=== PATIENT | male | born 1955 | race Caucasian/White ===

== ENCOUNTER → 2016-10-22 | Outpatient (CLI) | payer OTHER ==
--- NOTE | 2016-10-22 12:11 | CT ---
EXAMINATION TYPE: CT ChestAbdPelvis w con DATE OF EXAM: 10/22/2016 11:42 AM COMPARISON: November 04, 2013 and 06/25/1716 HISTORY: Lung carcinoma follow-up. CT DLP: DLP 2569 mGycm CONTRAST: CT scan of the chest, abdomen and pelvis is performed 100cc omni 300 injected through port acsessed b y rad nursing. oral also. CT Chest: LUNGS: Status post partial pneumonectomy change right upper lobe. There is persistent soft tissue rig ht paratracheal region right upper lobe measuring approximately 7.2 x 7.7 x 2.4 cm essentially unchan ged relative to the prior examination. There is a new finding of innumerable pulmonary nodules throug hout both lung callahan with the largest nodule left upper lobe measuring 1 cm and the smallest nodule within the left lung measures 2 mm. Within the right lung the largest nodule is identified at 9.5 mm with multiple small 2 mm nodules noted as well. There is a new right-sided pleural effusion measuring 2.1 cm in greatest AP dimension. MEDIASTINUM: Thoracic aorta is of normal caliber. The heart is not enlarged. Subcarinal adenopathy measures 1.9 cm versus 1.9 cm. Left-sided prevascular space adenopathy measures 1.9 cm versus 1.7 cm previously. There is also a new pericardial effusion measuring 2.7 cm in greatest dimension greatest along the left the lateral cardiac border. HILAR STRUCTURES: No evidence for mass. No hilar adenopathy is appreciated. OTHER: No significant abnormality. CONTRAST CT ABDOMEN AND PELVIS FINDINGS: LIVER/GB: No calcified gallstones. No space occupying hepatic lesion. Biliary tree is of normal ca liber. PANCREAS: No inflammation. No distinct mass. SPLEEN: No splenic enlargement. No lesion seen. ADRENALS: Right adrenal nodule is unchanged at 2 cm. Mild thickening is seen of the left adrenal glan d. KIDNEYS/BLADDER: No hydronephrosis. No nephrolithiasis. Stable renal cystic changes identified. The urinary bladder is poorly distended. BOWEL: Stable umbilical hernia which contains a short segment of small bowel without incarceration o r strangulation at this time. Normal appendix. Normal bowel caliber. No inflammation. GENITAL ORGANS: No gross abnormality. LYMPH NODES: No greater than 1cm abdominal or pelvic lymph nodes are appreciated. AORTA: No significant abnormality. OSSEOUS STRUCTURES: Degenerative changes thoracolumbar spine. OTHER: No significant additional abnormality is seen. IMPRESSION: 1. Essentially stable right hilar/suprahilar soft tissue for which I cannot exclude a tumor recurrenc e. As noted there is a new finding of innumerable pulmonary nodules within both lung callahan felt to r eflect metastatic disease. 2. New small right-sided pleural effusion. There are 3 mediastinal adenopathy as discussed. 4. New pericardial effusion. 5. Stable right adrenal nodule. Metastatic lesion not excluded.
== END | disposition home or self-care (01) ==
LOC: RADPROMAIN 10:58
PROVIDERS: ATTEND Internal Medicine Hematology & Oncology
DX: C34.90 Malignant neoplasm of unspecified part of unspecified bronchus or lung (principal); J90 Pleural effusion, not elsewhere classified; I31.3 Pericardial effusion (noninflammatory); R59.0 Localized enlarged lymph nodes; E27.8 Other specified disorders of adrenal gland
CPT/HCPCS: 71260; 74177; Q9967

== ENCOUNTER → 2016-11-20 | Outpatient (CLI) | payer OTHER ==
--- NOTE | 2016-11-20 10:55 | XR ---
EXAMINATION TYPE: XR chest 2V DATE OF EXAM: 11/20/2016 10:51 AM COMPARISON: 05/10/2014 TECHNIQUE: PA and lateral views submitted. HISTORY: Lung cancer FINDINGS: Cardiomegaly and Mediport catheter seen. Vague nodule seen in the right midlung measuring 7 mm. There is increasing density along the right paratracheal space with evidence of previous surgery. Bilatera l pleural-based thickening noted. Small right-sided pleural effusion. IMPRESSION: 1. Increasing right paratracheal soft tissue density relative to the previous exam as well as a new n odule in the right midlung measuring 7 mm. Pulmonary nodules and increased density in the right parat alesha region have been reported by previous CT scan.
== END | disposition home or self-care (01) ==
LOC: RADXRMAIN 10:34
PROVIDERS: ATTEND Registered Nurse Oncology
DX: R91.8 Other nonspecific abnormal finding of lung field (principal); M79.89 Other specified soft tissue disorders; C34.90 Malignant neoplasm of unspecified part of unspecified bronchus or lung; M25.519 Pain in unspecified shoulder; I10 Essential (primary) hypertension; Z71.3 Dietary counseling and surveillance
CPT/HCPCS: 71020

== ENCOUNTER 2016-12-03 16:47 | Emergency (ER) | payer OTHER ==
[2016-12-03 17:01] VITALS: TEMP 98
--- NOTE | 2016-12-03 17:40 | XR ---
EXAMINATION TYPE: XR elbow complete RT DATE OF EXAM: 12/03/2016 COMPARISON: NONE HISTORY: Pain following fall TECHNIQUE: Three-view right elbow FINDINGS: Anterior fat pad is normal. No elevation of posterior fat pad is evident. Radius aligns nor moris with the humerus. No acute displaced fractures are identified. Follow-up exams can be performed 7-10 days from acute trauma for continued pain. IMPRESSION: 1. Normal three-view right elbow.
--- NOTE | 2016-12-03 17:45 | ED ---
Fall HPI - General Chief Complaint: Fall Stated Complaint: Fell/hit head Time Seen by Provider: 12/03/16 17:10 Source: patient, RN notes reviewed Mode of arrival: wheelchair - History of Present Illness Initial Comments: 61 yo male presents to the ER with cc of fall. Patient states today he was bending over to tie his grandson shoe. Patient states that he currently is stage IV lung cancer and if you have or bends over or stands up too quickly he becomes lightheaded and has a syncopal episode. He states this happens often they state that they have been worked up for this. He states that he did this today and he became lightheaded and he passed out and hit his head. Family states that they called his doctor and they informed him to come here to ensure that his brain was okay. Patient states this was much like his typical syncopal episode. Patient denies any chest pain or shortness of breath with this. He states this happens to him often but typically gets them approximately once happens. He wanted to make sure that his brain is okay that they are not here for any other purpose. He states he did not want be worked up for these episodes he has been worked up for them. They just want to make sure everything else is okay. Patient denies any recent fever, chills, shortness of breath, chest pain, back pain, abdominal pain, nausea vomiting, numbness or tingling, dysuria or hematuria, constipation or diarrhea, headaches or visual changes, or any other current symptoms. - Related Data Home Medications Medication Instructions Recorded Confirmed Docusate Sodium [Dulcolax Stool 100 mg PO DAILY PRN 02/14/14 06/26/16 Softener] Albuterol Sulfate [Proair 1 puff PO DIRECTED PRN 06/26/16 06/26/16 Respiclick] Budesonide-Formot 160-4.5 Mcg 2 puff INHALATION BID PRN 06/26/16 06/26/16 [Symbicort 160-4.5 Mcg Inhaler] Tiotropium Kennan [Spiriva 4 gm IH DIRECTED PRN 06/26/16 06/26/16 Respimat] Allergies Allergy/AdvReac Type Severity Reaction Status Date / Time No Known Allergies Allergy Verified 12/03/16 19:05 Review of Systems ROS Statement: Those systems with pertinent positive or pertinent negative responses have been documented in the HPI. ROS Other: All systems not noted in ROS Statement are negative. Past Medical History Past Medical History: Cancer, Hypertension Additional Past Medical History / Comment(s): constipation,arthritis,. DX LUNG CA November. 33 RADIATION TX'S AND 4TH ROUND CHEMO GIVEN APR 27, 2014 AND COMPLETED., HAS TORN ROTATORS CUFF, MIGRAINES History of Any Multi-Drug Resistant Organisms: None Reported Past Surgical History: Appendectomy, Bowel Resection Additional Past Surgical History / Comment(s): REMOVED UPPER LOBE OF RT LUNG FOR TUMOR 12/07/2013, PYLENADEL CYST REMOVED YRS AGO, Past Anesthesia/Blood Transfusion Reactions: No Reported Reaction Past Psychological History: No Psychological Hx Reported Smoking Status: Former smoker Past Alcohol Use History: None Reported Past Drug Use History: None Reported - Past Family History Father Family Medical History: Cancer Mother Family Medical History: Renal Disease General Exam - General Exam Comments Initial Comments: General: The patient is awake and alert, in no distress, and does not appear acutely ill. Eye: Pupils are equal, round and reactive to light, extra-ocular movements are intact; there is normal conjunctiva bilaterally. No signs of icterus. Ears, nose, mouth and throat: There are moist mucous membranes. Neck: The neck is supple, there is no tenderness. Cardiovascular: There is a regular rate and rhythm. No murmur, rub or gallop is appreciated. Respiratory: Lungs are clear to auscultation, respirations are non-labored, breath sounds are equal. No wheezes, stridor, rales, or rhonchi. Gastrointestinal: Soft, non-distended, non-tender abdomen without masses or organomegaly noted. There is no rebound or guarding present. No CVA tenderness. Bowel sounds are unremarkable. Back: There is no tenderness to palpation in the midline. There is no obvious deformity. No rashes noted. Musculoskeletal: Patient does appear to have superficial abrasion to the right elbow, Normal ROM, no tenderness, There is no pedal edema. There is no calf tenderness or swelling. Sensation intact. Pulses equal bilaterally 2+. Neurological: CN II-XII intact, There are no obvious motor or sensory deficits. Coordination appears grossly intact. Speech is normal. Skin: Skin is warm and dry and no rashes or lesions are noted. Psychiatric: Cooperative, appropriate mood & affect, normal judgment. Limitations: no limitations Course Vital Signs 12/03/16 16:58 Temperature 98.0 F Pulse Rate 108 H Respiratory 20 Rate Blood Pressure 155/75 O2 Sat by Pulse 97 Oximetry Medical Decision Making - Medical Decision Making 61-year-old male presents emergency Department chief complaint of fall with head injury. At this time CT is reviewed and it does appear that patient most likely has a medic stabbing lesion. There is low suspicion for hemorrhage at this time. This time we discussed close follow up with his doctor. I'm in the morning. We did discuss return parameters and follow-up. We discussed other causes of this and when to come back. They stated they understood and he understood the plan. All questions have been answered. They will be discharged. - Radiology Data Radiology results: report reviewed, image reviewed Disposition Clinical Impression: Syncope, Fall, Minor head injury, Brain tumor Disposition: HOME SELF-CARE Condition: Stable Instructions: Head Injury (ED) Additional Instructions: Please use medication as discussed. Please follow up with family doctor if symptoms have not improved over the next two days. Please return to the emergency room if your symptoms increase or worsen or for any other concerns. Referrals: Adama Castillo DO [Primary Care Provider] - 1-2 days Time of Disposition: 19:09
--- NOTE | 2016-12-03 17:48 | CT ---
EXAMINATION TYPE: CT brain jerry soares DATE OF EXAM: 12/03/2016 COMPARISON: NONE HISTORY: Syncopal episode with posterior head injury today CT DLP: 1730.7 mGycm, Automated exposure control for dose reduction was used. CONTRAST: Patient injected with 0 mL of Omnipaque 300. CT of the brain is performed utilizing 3 mm thick sections through the posterior fossa and 3 mm thick sections through the remaining calvarium. Study is performed within 24 hours of arrival to the hospital. There is an ill-defined 0.9 cm hyperintensity within the left subcortical centrum semiovale. Diffuse axonal injury with a small hemorrhage could be considered. Underlying mass, such as metastasis, is no t excluded. There is some vague hypodensity adjacent which could be related to some edema. Series 11 image 42. Report was called to the emergency room PA by Dr. Hull by telephone at the time of inter pretation. No additional areas suspicious for acute intracranial hemorrhage is evident. No acute infarcts are evident. Ventricles and sulci are appropriate for the patient age. Paranasal sinuses and mastoid air cells within the [id number] are clear. IMPRESSIONS: 1. There is a 0.9 cm ill-defined hyperintensity within the subcortical region posterior left frontal lobe which is felt to be likely related to a metastatic lesion, patient is a known stage IV cancer. Differential could include, but less likely, an acute diffuse axonal injury or intraparenchymal hemor rhage. CT cervical spine. COMPARISON: None CT of the cervical spine is performed in the axial plane at 2 mm thick sections. Reconstructed image s in the coronal, and sagittal plane are reviewed on the computer. No acute fractures are evident. Vertebral body alignment is normal. Disc heights are preserved. Vertebral body heights are preserved. There is an area of sclerosis within the body of the right C1 v ertebral level. No spinal canal stenosis is evident. No neural foraminal stenosis is evident. There are scattered punctate densities within the left lung apex. Metastatic disease could be conside red. There is some thickening through the right apex. This could be related to scarring or neoplasm. IMPRESSIONS: 1. No acute osseous abnormality cervical spine. 2. Punctate nodularity within the left apex with some thickening along the right medial apex. Correla te for primary and metastatic lesions. 3. Sclerosis within the right portion vertebral body of C1. Sclerotic metastasis is not excluded.
[2016-12-03] MEDS ORDERED: RX INFO: IV CONTRAST WAS GIVEN 1 EACH MISC MISCELLANE PRN (18:05)
--- NOTE | 2016-12-03 19:01 | CT ---
EXAMINATION TYPE: CT brain w con DATE OF EXAM: 12/03/2016 COMPARISON: NONE INDICATION: R/O bleed vs. Mass DLP: 978.2 mGycm, Automated exposure control for dose reduction was used. CONTRAST: None CT of the brain is performed utilizing 3 mm thick sections through the posterior fossa and 3 mm thick sections through the remaining calvarium. Study is performed within 24 hours of arrival to the hosp ital. No abnormal hyperdensity is present to suggest an acute intracranial hemorrhage. The rounded density within the subcortical white matter interface in the left parietal lobe is again identified. On these images this measures 1.1 x 1.2 x 1.3 cm. Margins appear smooth and intraparenchy mal. Mild vasogenic edema may be adjacent. No acute infarcts are evident. Ventricles and sulci are appropriate for the patient age. Paranasal sinuses and mastoid air cells within the [id number] are clear. IMPRESSIONS: 1. Findings appear more suggestive for intraparenchymal metastatic lesion within the left parietal lobe. Some enhancement appears to be present.
[2016-12-03 19:45] VITALS: BP 134/79; PULSE 113; RESP 16
== END 2016-12-03 19:43 | disposition home or self-care (01) ==
LOC: EC 16:47
DX: S09.90XA Unspecified injury of head, initial encounter (principal); R55 Syncope and collapse; R42 Dizziness and giddiness; D49.6 Neoplasm of unspecified behavior of brain; Z85.118 Personal history of other malignant neoplasm of bronchus and lung; Z87.891 Personal history of nicotine dependence; W18.00XA Striking against unspecified object with subsequent fall, initial encounter; Y92.009 Unspecified place in unspecified non-institutional (private) residence as the place of occurrence of the external cause
CPT/HCPCS: 73080; 72125; 70450; 70460; 99284; Q9967

== ENCOUNTER → 2016-12-04 | Outpatient (CLI) | payer OTHER ==
[2016-12-04 20:59] LABS: Non-African American GFR(MDRD) >60 (>60 ml/min/1.73 sqM)
--- NOTE | 2016-12-05 08:13 | MR ---
EXAMINATION TYPE: MR brain wo/w con DATE OF EXAM: 12/04/2016 COMPARISON: MRI brain February 01, 2014. CT brain December 03, 2016. HISTORY: Secondary malignant neoplasm of lung per order. History of lung cancer with recent fall inju ry and had abnormal CT. TECHNIQUE: Multiplanar, multisequence images of the brain and brainstem is performed without and with IV contras t, utilizing 20 mL intravenous MultiHance . FINDINGS: Diffusion weighted images demonstrate no evidence of a recent infarct or other diffusion ab normality. There is no worrisome extra-axial fluid collection. There is diffuse ventricular and sulc al prominence consistent with diffuse cerebral atrophy. No suspicious intraparenchymal blood product is seen in T2 Star weighted images to suggest diffuse axonal injury Midline structures demonstrate normal morphology. The craniocervical junction appears within normal limits. Post contrast images confirm 1.2 x 1.0 x 1.0 heterogeneous enhancing lesion high left fronta l parietal region on axial image 25, coronal image 22, and sagittal image 53. This correlates with hy perdense slight enhancing lesion on CT. Blood product noted on T2 Star weighted images. In addition s een better on MRI versus CT there is second additional new rim-enhancing heterogeneous smaller lesion s, for references 3 mm lesion left temporal parietal region on sagittal image 24. The dural venous si nuses appear patent. The visualized sinuses are clear and the globes are intact. IMPRESSION: Hemorrhagic metastatic 1.2 cm focus high left frontal parietal junction is confirmed. Sec ond smaller metastatic lesion is seen on MRI not as well seen on CT.
== END | disposition home or self-care (01) ==
LOC: RADMRIMAIN 20:27
PROVIDERS: ATTEND Radiology Radiation Oncology
DX: C79.31 Secondary malignant neoplasm of brain (principal); C78.00 Secondary malignant neoplasm of unspecified lung
CPT/HCPCS: 82565; 70553; 36415; A9577

== ENCOUNTER 2017-01-15 12:05 | Inpatient (IN) | payer OTHER ==
[2017-01-15] MEDS ORDERED: IPRATROPIUM-ALBUTEROL 3 ML NEB INHALATION STA (13:02)
[2017-01-15] MEDS ORDERED: SODIUM CHLORIDE 0.9% 1,000 ML IV STA (13:02)
[2017-01-15 13:23] LABS: Basophils % (A) 0 %; CH 25.9; CHCM 31.4; Eosinophils % (A) 1 %; HCT 42.2 % (39.0-53.0); HDW 2.42; HGB 13.4 gm/dL (13.0-17.5); Hypochromasia Slight; Luc # (Auto) 0.23; Luc % (Auto) 3; Lymphocytes # (A) 0.7 k/uL (1.0-4.8); Lymphocytes % (A) 9 %; MCH 26.1 pg (25.0-35.0); MCHC 31.7 g/dL (31.0-37.0); MCV 82.4 fL (80.0-100.0); Mean Platelet Volume 6.8; Monocytes # (A) 0.6 k/uL (0-1.0); Monocytes % (A) 8 %; Neutrophils # (A) 6.5 k/uL (1.3-7.7); Neutrophils % (A) 80 %; RBC 5.13 m/uL (4.30-5.90); RDW 14.8 % (11.5-15.5); WBC 8.1 k/uL (3.8-10.6)
[2017-01-15 13:32] LABS: INR 1.3 (<1.1); Prothrombin Time 13.1 sec (9.0-12.0)
[2017-01-15 13:41] LABS: Creatine Kinase 54 U/L (55-170)
--- NOTE | 2017-01-15 13:45 | ED ---
SOB HPI - General Chief Complaint: Shortness of Breath Stated Complaint: Poss Blood Clot Time Seen by Provider: 01/15/17 12:23 Source: patient, family, RN notes reviewed, old records reviewed Mode of arrival: wheelchair Limitations: no limitations - History of Present Illness Initial Comments: This is a 61-year-old male with history of stage IV lung cancer who is status post a partial lung resection on the right and currently is being treated with chemotherapy who presents with complaints of shortness of breath. He states he has shortness of breath with exertional dyspnea. No dizziness he is also a recent decreased appetite concern was for pulmonary embolism along with the presenting complaints. He denies a over chest pain at this time. MD Complaint: shortness of breath - Related Data Home Medications Medication Instructions Recorded Confirmed Docusate Sodium [Dulcolax Stool 100 mg PO TID 02/14/14 01/15/17 Softener] Tiotropium Gilbert [Spiriva 4 gm IH RT-DAILY PRN 06/26/16 01/15/17 Respimat] Fexofenadine HCl [Skye Allergy] 180 mg PO DAILY 12/03/16 01/15/17 Fluticasone/Salmeterol [Advair 1 inhalation PO RT-BID 12/03/16 01/15/17 500-50 Diskus] Levalbuterol Nebulized [Xopenex 1.25 mg INHALATION RT-QID PRN 12/03/16 01/15/17 Nebulized] Naproxen Sodium/Pseudoephedrin 1 tab PO BID 12/03/16 01/15/17 [Aleve-D Sinus and Cold Caplet] Opdivo Unknown Dose 1 dose IV Q14D 12/03/16 01/15/17 diphenhydrAMINE HCL [Benadryl] 50 mg PO HS PRN 12/03/16 01/15/17 guaiFENesin [Mucinex] 600 mg PO DAILY 12/03/16 01/15/17 Allergies Allergy/AdvReac Type Severity Reaction Status Date / Time No Known Allergies Allergy Verified 01/15/17 12:31 Review of Systems ROS Statement: Those systems with pertinent positive or pertinent negative responses have been documented in the HPI. ROS Other: All systems not noted in ROS Statement are negative. Past Medical History Past Medical History: Cancer, Hypertension Additional Past Medical History / Comment(s): constipation,arthritis,. DX LUNG CA MAY 1ST 2014. 31 RADIATION TX'S AND 4TH ROUND CHEMO GIVEN APR 27, 2014 AND COMPLETED., HAS TORN ROTATORS CUFF, MIGRAINES History of Any Multi-Drug Resistant Organisms: None Reported Past Surgical History: Appendectomy, Bowel Resection Additional Past Surgical History / Comment(s): REMOVED UPPER LOBE OF RT LUNG FOR TUMOR 12/07/2013, PYLENADEL CYST REMOVED YRS AGO, Past Anesthesia/Blood Transfusion Reactions: No Reported Reaction Past Psychological History: No Psychological Hx Reported Smoking Status: Former smoker Past Alcohol Use History: None Reported Past Drug Use History: None Reported - Past Family History Father Family Medical History: Cancer Mother Family Medical History: Renal Disease General Exam - General Exam Comments Initial Comments: This is a well-developed well-nourished awake alert oriented times 3 male Limitations: no limitations General appearance: alert, anxious, in distress Head exam: Present: atraumatic, normocephalic, normal inspection Eye exam: Present: normal appearance, PERRL, EOMI. Absent: scleral icterus, conjunctival injection, periorbital swelling ENT exam: Present: normal exam, mucous membranes moist Neck exam: Present: normal inspection. Absent: tenderness, meningismus, lymphadenopathy Respiratory exam: Present: wheezes, decreased breath sounds Cardiovascular Exam: Present: tachycardia GI/Abdominal exam: Present: soft, normal bowel sounds. Absent: distended, tenderness, guarding, rebound, rigid Extremities exam: Present: normal inspection, full ROM, normal capillary refill. Absent: tenderness, pedal edema, joint swelling, calf tenderness Back exam: Present: normal inspection Neurological exam: Present: alert, oriented X3, CN II-XII intact Psychiatric exam: Present: normal affect, normal mood Skin exam: Present: warm, dry, intact, normal color. Absent: rash Course Vital Signs 01/15/17 01/15/17 01/15/17 12:10 13:19 13:24 Temperature 98.3 F Pulse Rate 133 H 122 H 126 H Respiratory 24 Rate Blood Pressure 106/72 O2 Sat by Pulse 97 Oximetry 01/15/17 01/15/17 01/15/17 13:30 13:43 14:00 Temperature Pulse Rate 126 H 124 H Respiratory 20 24 Rate Blood Pressure 141/76 O2 Sat by Pulse 95 95 Oximetry 01/15/17 01/15/17 14:30 15:22 Temperature 98.5 F Pulse Rate 118 H 121 H Respiratory 22 22 Rate Blood Pressure 138/90 136/83 O2 Sat by Pulse 95 99 Oximetry - Reevaluation(s) Reevaluation #1: 01/15/17 15:47 Reevaluation patient reveals improvement in his ability to breathe he still does feel somewhat short of breath however. Medical Decision Making - Medical Decision Making I did discuss the findings with the patient and his . I also discussed case with the admitting physician. Patient be admitted with consultation by Dr. Gomez. Patient is feeling more comfortable after the initial treatment that was rendered. - Lab Data Result diagrams: 01/15/17 12:55 01/15/17 12:55 Lab Results 01/15/17 01/15/17 01/15/17 Range/Units 12:55 12:55 12:55 WBC 8.1 (3.8-10.6) k/uL RBC 5.13 (4.30-5.90) m/uL Hgb 13.4 (13.0-17.5) gm/dL Hct 42.2 (39.0-53.0) % MCV 82.4 (80.0-100.0) fL MCH 26.1 (25.0-35.0) pg MCHC 31.7 (31.0-37.0) g/dL RDW 14.8 (11.5-15.5) % Plt Count 419 (150-450) k/uL Neutrophils % 80 % Lymphocytes % 9 % Monocytes % 8 % Eosinophils % 1 % Basophils % 0 % Neutrophils # 6.5 (1.3-7.7) k/uL Lymphocytes # 0.7 L (1.0-4.8) k/uL Monocytes # 0.6 (0-1.0) k/uL Eosinophils # 0.0 (0-0.7) k/uL Basophils # 0.0 (0-0.2) k/uL Hypochromasia Slight PT (9.0-12.0) sec INR (<1.1) APTT (22.0-30.0) sec D-Dimer (<0.60) mg/L FEU Sodium 136 L (137-145) mmol/L Potassium 4.6 (3.5-5.1) mmol/L Chloride 102 (98-107) mmol/L Carbon Dioxide 24 (22-30) mmol/L Anion Gap 10 mmol/L BUN 20 (9-20) mg/dL Creatinine 0.98 (0.66-1.25) mg/dL Est GFR (MDRD) Af Amer >60 (>60 ml/min/1.73 sqM) Est GFR (MDRD) Non-Af >60 (>60 ml/min/1.73 sqM) Glucose 123 H (74-99) mg/dL Calcium 9.6 (8.4-10.2) mg/dL Magnesium 1.8 (1.6-2.3) mg/dL Total Bilirubin 0.7 (0.2-1.3) mg/dL AST 29 (17-59) U/L ALT 38 (21-72) U/L Alkaline Phosphatase 54 (38-126) U/L Total Creatine Kinase 54 L (55-170) U/L CK-MB (CK-2) 1.3 (0.0-2.4) ng/mL CK-MB (CK-2) Rel Index 2.4 Troponin I <0.012 (0.000-0.034) ng/mL NT-Pro-B Natriuret Pep pg/mL Total Protein 7.2 (6.3-8.2) g/dL Albumin 3.5 (3.5-5.0) g/dL 01/15/17 01/15/17 Range/Units 12:55 12:55 WBC (3.8-10.6) k/uL RBC (4.30-5.90) m/uL Hgb (13.0-17.5) gm/dL Hct (39.0-53.0) % MCV (80.0-100.0) fL MCH (25.0-35.0) pg MCHC (31.0-37.0) g/dL RDW (11.5-15.5) % Plt Count (150-450) k/uL Neutrophils % % Lymphocytes % % Monocytes % % Eosinophils % % Basophils % % Neutrophils # (1.3-7.7) k/uL Lymphocytes # (1.0-4.8) k/uL Monocytes # (0-1.0) k/uL Eosinophils # (0-0.7) k/uL Basophils # (0-0.2) k/uL Hypochromasia PT 13.1 H (9.0-12.0) sec INR 1.3 (<1.1) APTT 67.0 H (22.0-30.0) sec D-Dimer 2.59 H (<0.60) mg/L FEU Sodium (137-145) mmol/L Potassium (3.5-5.1) mmol/L Chloride (98-107) mmol/L Carbon Dioxide (22-30) mmol/L Anion Gap mmol/L BUN (9-20) mg/dL Creatinine (0.66-1.25) mg/dL Est GFR (MDRD) Af Amer (>60 ml/min/1.73 sqM) Est GFR (MDRD) Non-Af (>60 ml/min/1.73 sqM) Glucose (74-99) mg/dL Calcium (8.4-10.2) mg/dL Magnesium (1.6-2.3) mg/dL Total Bilirubin (0.2-1.3) mg/dL AST (17-59) U/L ALT (21-72) U/L Alkaline Phosphatase (38-126) U/L Total Creatine Kinase (55-170) U/L CK-MB (CK-2) (0.0-2.4) ng/mL CK-MB (CK-2) Rel Index Troponin I (0.000-0.034) ng/mL NT-Pro-B Natriuret Pep 535 pg/mL Total Protein (6.3-8.2) g/dL Albumin (3.5-5.0) g/dL - EKG Data -: EKG Interpreted by Ok EKG shows normal: sinus rhythm (EKG shows sinus tachycardia of 127 appear of 01 54 QRS 88 QT/QTC at 286/4:15 low-voltage QRS nonspecific anterior findings no acute changes seen with compared to an EKG dated 05/07/14) - Radiology Data Radiology results: report reviewed (I did review the imaging and reports are is evidence of a right pleural effusion and pericardial effusion.), image reviewed Critical Care Time Critical Care Time: Yes Critical Care Time: 31 minutes of critical care time which includes initial presentation with history physical labs x-rays reevaluation patient response to therapy and several occasions discussion with the patient and family regarding findings discussed with the admitting physician. Documentation the above admission orders review of old charting. Disposition Clinical Impression: Acute bronchospasm, Pericardial effusion, Pleural effusion, Lung cancer Disposition: ADMITTED IP TO THIS HOSP Condition: Stable Referrals: Adama Castillo DO [Primary Care Provider] - 1-2 days
[2017-01-15 13:54] LABS: Creatine Kinase MB 1.3 ng/mL (0.0-2.4); Troponin I <0.012 ng/mL (0.000-0.034)
--- NOTE | 2017-01-15 14:00 | XR ---
EXAMINATION TYPE: XR chest 2V DATE OF EXAM: 01/15/2017 COMPARISON: 11/20/2016 TECHNIQUE: PA and lateral views submitted. HISTORY: Shortness of breath FINDINGS: Cardiomegaly and Mediport catheter again noted. Right paratracheal soft tissue thickening again noted appears stable. There is a stable right-sided consolidation and pleural effusion. Left lung clear. IMPRESSION: 1. Chronic pleural-parenchymal changes are stable. Mass or adenopathy in the right paratracheal regio n suspected.
[2017-01-15 14:12] LABS: ALT 38 U/L (21-72); AST 29 U/L (17-59); Alkaline Phosphatase 54 U/L (38-126); Anion Gap 10 mmol/L; Blood Urea Nitrogen 20 mg/dL (9-20); Calcium 9.6 mg/dL (8.4-10.2); Carbon Dioxide 24 mmol/L (22-30); Chloride 102 mmol/L (98-107); Glucose 123 mg/dL (74-99); Magnesium 1.8 mg/dL (1.6-2.3); Non-African American GFR(MDRD) >60 (>60 ml/min/1.73 sqM); Potassium 4.6 mmol/L (3.5-5.1); Sodium 136 mmol/L (137-145); Total Bilirubin 0.7 mg/dL (0.2-1.3); Total Protein 7.2 g/dL (6.3-8.2)
[2017-01-15] MEDS ORDERED: RX INFO: IV CONTRAST WAS GIVEN 1 EACH MISC MISCELLANE PRN (14:16)
--- NOTE | 2017-01-15 15:23 | CT ---
EXAMINATION TYPE: CT angio chest DATE OF EXAM: 01/15/2017 COMPARISON: Radiograph 01/15/[address] 10/22/2016 HISTORY: 61-year-old male with shortness of breath. History of lung cancer. TECHNIQUE: Contiguous axial scanning of the chest performed with IV Contrast, patient injected with 5 9 mL of Omnipaque 350. Coronal/sagittal MIP reconstructions performed. CT DLP: 681.00 mGycm Automated exposure control for dose reduction was used. FINDINGS: Left anterior chest wall injection port catheter tip at the cavoatrial junction. The heart is normal size though there is a large pericardial effusion slightly increased in the inter alexandre now measuring up to 2.9 cm thick versus 2.6 cm previously. Coronary vessel calcifications are a m arker for coronary artery disease. Ascending aorta is ectatic at 3.6 cm with a mild to moderate hydrostatic arch calcifications and bovi ne configuration to the aortic arch. Satisfactory opacification of the pulmonary artery system without evidence for pulmonary embolus. Severe mediastinal lymphadenopathy continues to measure up to 1.5 cm short axis, not significantly ch anged from prior. Redemonstrated right perihilar consolidation and complete right upper lobe volume loss measuring 8.0 x 2.3 cm, not significantly changed. However, there is enlarging, now moderate right pleural effusion. Annual right infrahilar consolidation, axial image 76, increasing groundglass densities within the ri ght lower lobe, and new consolidation and volume loss within a portion of the right middle lobe as we ll. Too numerous to count bilateral pulmonary nodules are redemonstrated. Some of the smaller nodules are new and the largest nodules, such as in the left upper lobe axial image 55 slightly increased in siz e now measuring 1 cm versus 8 mm, previously, in the right middle lobe measuring 1.3 cm, not clearly seen previously, and in the right lower lobe measuring 1.2 cm versus 9 mm, previously. Redemonstrated nodularity right adrenal gland measuring 2.0 cm and in the left adrenal gland measurin g 2.0 cm small. Possible new 1.2 cm hypodense lesion in segment 3 left hepatic lobe, axial image 143. Bones: Endplate spondylosis mid to lower thoracic spine. A lytic lesion with endosteal scalloping inv olving the left lateral seventh rib and focal sclerosis right lateral seventh rib are unchanged from prior exam. IMPRESSION: 1. NO EVIDENCE FOR PULMONARY EMBOLUS. 2. LARGE PERICARDIAL EFFUSION MEASURING 2.9 CM THICK, SLIGHTLY INCREASED FROM 10/22/2016. 3. SUPERIOR MEDIASTINAL LYMPHADENOPATHY (MEASURING UP TO 1.5 CM) IS RELATIVELY STABLE. TOO NUMEROUS TO COUNT BILATERAL PULMONARY NODULES ARE SLIGHTLY INCREASED IN NUMBER AND SIZE (MEASURING UP TO 1.3 C M) SUGGESTING INTERVAL DISEASE PROGRESSION. 4. INCREASING, NOW MODERATE RIGHT PLEURAL EFFUSION. THERE IS NEW FOCAL RIGHT INFRAHILAR OPACITY, SURR OUNDING GROUNDGLASS, AND PATCHY CONSOLIDATION WITHIN THE RIGHT MIDDLE LOBE WELL. CORRELATE FOR PNE UMONIA VERSUS PROGRESSIVE NEOPLASM. 5. THE RIGHT PERIHILAR CONSOLIDATION AND RIGHT UPPER LOBE VOLUME LOSS IS SIMILAR. 6. STABLE ADRENAL NODULARITY. POSSIBLE NEW 1.2 CM LESION IN THE LEFT HEPATIC LOBE. 7. STABLE LYTIC LESION LEFT LATERAL SEVENTH RIB AND SCLEROTIC LESION IN RIGHT LATERAL SEVENTH RIB.
[2017-01-15] MEDS ORDERED: TIOTROPIUM BROMIDE 4 GM IH PRN (15:52)
[2017-01-15] MEDS ORDERED: diphenhydrAMINE 50 MG CAP PO PRN (15:52)
[2017-01-15] MEDS ORDERED: PSEUDOEPHEDRINE 12HR 120 MG TABLET.ER PO PRN (16:11)
[2017-01-15] MEDS: SODIUM CHLORIDE 0.9% 1,000 ML IV SCH (16:47)
[2017-01-15] MEDS: DOCUSATE 100 MG CAP PO SCH ×2 (16:48→23:14)
[2017-01-15] MEDS: IPRATROPIUM-ALBUTEROL 3 ML NEB INHALATION SCH ×3 (19:07→23:01)
[2017-01-15] MEDS: SYMBICORT 160-4.5 MCG INHALER INHALATION SCH (19:20)
--- NOTE | 2017-01-15 22:15 | P.HPIM ---
History of Present Illness H&P Date: 01/15/17 Chief Complaint: Short of breath/cough This is a very pleasant 61-year-old patient of Dr. Castillo. Patient was diagnosed with stage IV lung cancer back in 2013 and had right upper lobe removed patient that time and lung surgery, radiation treatment chemotherapy. [address] Peng. Patient subsequently has had recurrence is now being treated with immunotherapy. Dr. De La Vega from oncology. Patient's weight has been stable. Appetite is fair. Patient presents with the cough slight phlegm some wheezing was found to have a heart rate brought in denies any obvious fevers not much wheezing wheezing.. It every daughter that patient's an ex-smoker Significant past medical history: Stage IV lung cancer with recurrence, kidney stones, right rotator cuff injury, osteoarthritis Review of Systems GEN.: [ Tired] EYES: [None] HEENT: [None] NECK: [None] RESPIRATORY: [As above] CARDIOVASCULAR: [None] GASTROINTESTINAL: [None] GENITOURINARY: [None] MUSCULOSKELETAL: [None] LYMPHATICS: [None] HEMATOLOGICAL: [None] PSYCHIATRY: [None] NEUROLOGICAL: [None] Past Medical History Past Medical History: Cancer, Pneumonia Additional Past Medical History / Comment(s): constipation,arthritis, KIDNEY STONES,MIGRAINES,RT TORN ROTATOR CUFF, CONSTIPATION." COLON POLYP POSITIVE FOR CANCER-BUT TISSUE SENT [facility]ER". DX LUNG CA November. 33 RADIATION TX'S AND 4TH ROUND CHEMO GIVEN APR 27, 2014 AND COMPLETED.FEW MONTHS AGO HAD SEIZURE BUT NOT TAKING ANY MEDS FOR IT THEN" APPROX 1.5 MONTHS AGO FELL HIT HEAD-HAD CT OF HEAD-FOUND SPOT ON BRAIN-HAD 3 RADIATION TX. History of Any Multi-Drug Resistant Organisms: None Reported Past Surgical History: Appendectomy, Bowel Resection, Hernia Repair, Tonsillectomy Additional Past Surgical History / Comment(s): REMOVED UPPER LOBE OF RT LUNG FOR TUMOR 12/07/2013, PILONDIAL CYST REMOVED YRS AGO, UPPER DENTAL IOMPLANTS, BRONCHOSCOPY, LT CHEST POWER PORT. 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, stopped smoking in 2009 - Past Family History Father Family Medical History: Cancer Mother Family Medical History: Renal Disease Medications and Allergies Home Medications Medication Instructions Recorded Confirmed Type Docusate Sodium [Dulcolax Stool 100 mg PO TID 02/14/14 01/15/17 History Softener] Tiotropium [place] [Spiriva 4 gm IH RT-DAILY PRN 06/26/16 01/15/17 History Respimat] Fexofenadine HCl [Skye Allergy] 180 mg PO DAILY 12/03/16 01/15/17 History Fluticasone/Salmeterol [Advair 1 inhalation PO RT-BID 12/03/16 01/15/17 History 500-50 Diskus] Levalbuterol Nebulized [Xopenex 1.25 mg INHALATION RT-QID PRN 12/03/16 01/15/17 History Nebulized] Naproxen Sodium/Pseudoephedrin 1 tab PO BID 12/03/16 01/15/17 History [Aleve-D Sinus and Cold Caplet] Opdivo Unknown Dose 1 dose IV Q14D 12/03/16 01/15/17 History diphenhydrAMINE HCL [Benadryl] 50 mg PO HS PRN 12/03/16 01/15/17 History guaiFENesin [Mucinex] 600 mg PO DAILY 12/03/16 01/15/17 History Allergies Allergy/AdvReac Type Severity Reaction Status Date / Time No Known Allergies Allergy Verified 01/15/17 12:31 Physical Exam Vitals: VITAL SIGNS: 98.3, 133, 24, 106/72, 97% room air GENERAL: Well built, BMI 33.6 sitting up, comfortable. EYES: Pupils equal. Conjunctiva normal. HEENT: External appearance of nose and ears normal, oral cavity grossly normal. NECK: JVD not raised; masses not palpable. HEART: First and second heart sounds are normal; no edema. LUNGS: Respiratory rate normal; decreased breath sounds, mild extremity wheezing. ABDOMEN: Soft, nontender, liver spleen not palpable, no masses palpable. LYMPHATICS: No lymph nodes palpable in the axilla and neck]. PSYCH: [Alert and oriented x3; mood and affect ever]l. NEUROLOGICAL: [Cranial nerves grossly intact; no facial asymmetry, power and sensation grossly intact]. Results CBC & Chem 7: 01/15/17 12:55 01/15/17 12:55 Labs: Labs white count 8.1, hemoglobin 13.4, pro time 13.1, potassium 4.6 Computed tomography scan chest results noted Assessment and Plan Plan: Assessment: -Stage IV lung cancer having had previous right upper lobe removed in 2014 then received chemotherapy relation treatment now recurrence noted including metastatic of the ribs and mediastinal lymphadenopathy. -Large pericardial effusion likely an extension of lung cancer -Large pleural effusion, could be from malignancy or could be result of immunotherapy -COPD in a neck smoker Obesity BMI 33.6 Kidney stones asymptomatic Primary osteoarthritis in multiple joints bilateral -Sinus tachycardia Plan: Consultations Dr. Peng from oncology be done. We'll order 2-D echocardiogram , and pulmonary consultation. We'll also add nebulized bronchodilators. Overall prognosis seems guarded.Care was discussed with the patient, questions were answered
[2017-01-15] MEDS: ACETAMINOPHEN TAB 325 MG TAB PO PRN (22:28)
[2017-01-15] MEDS: MELATONIN 5 MG TABLET PO SCH (22:30)
[2017-01-15] MEDS ORDERED: IPRATROPIUM-ALBUTEROL 3 ML NEB INHALATION PRN (23:02)
[2017-01-16] MEDS: SYMBICORT 160-4.5 MCG INHALER INHALATION SCH ×2 (07:12→19:27)
[2017-01-16] MEDS: IPRATROPIUM-ALBUTEROL 3 ML NEB INHALATION SCH ×4 (07:13→19:27)
[2017-01-16] MEDS: ENOXAPARIN 40 MG/0.4 ML SYRINGE SQ SCH (08:27)
[2017-01-16] MEDS: LORATADINE 10 MG TAB PO SCH (08:27)
[2017-01-16] MEDS: guaiFENesin 600 MG TABLET.ER PO SCH (08:27)
[2017-01-16] MEDS: ACETAMINOPHEN TAB 325 MG TAB PO PRN ×2 (10:13→17:29)
--- NOTE | 2017-01-16 11:08 | P.CNPUL ---
History of Present Illness Consult date: 01/16/17 Reason for consult: dyspnea, hypoxemia, pleural effusion, lung mass, abnormal CXR/CT Chief complaint: Shortness of breath History of present illness: This is a 61-year-old male who I diagnosed with non-small cell lung cancer a while back. He's get advanced disease. 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 He initially underwent 4 rounds of chemotherapy. Subsequent to that he was found to have a brain met and he had some radiation to the brain. In addition, the patient has had immunotherapy with Opdivo. Anyway, the patient was doing well up until about 10 days ago. At that time he no so profound increasing shortness of breath. He is coughing. Producing clear phlegm. No fever no chills. No chest discomfort or chest pain. He came into the oncology office and was seen by the nurse practitioner. She was concerned about tachycardia and sent him to the ER was evaluated by Dr. Perdomo. They found advanced disease on his CT angiogram. There is no PE. His some fluid in the right chest. He had bulky adenopathy in the also had a pericardial effusion. I disorder the stat echocardiogram. He'll be he will be seen by cardiology and he may need to be seen by cardiothoracic surgery for pericardial window. Anyway, the patient is sitting in his room. He was playing cards with his . Doesn't look horrible though. Anyway the patient' s get a very raspy voice and also has a raspy cough. Again producing lots of phlegm. Hasn't been feeling well for about the last 10 days. Review of Systems A 12 point review of system is positive for shortness of breath chest congestion cough and phlegm production. Bit of wheezing. No fever no chills. No chest pain or chest discomfort. Past Medical History Past Medical History: Cancer, Pneumonia Additional Past Medical History / Comment(s): constipation,arthritis, KIDNEY STONES,MIGRAINES,RT TORN ROTATOR CUFF, CONSTIPATION." COLON POLYP POSITIVE FOR CANCER-BUT TISSUE SENT FROM [facility]ER". DX LUNG CA November. 33 RADIATION TX'S AND 4TH ROUND CHEMO GIVEN APR 27, 2014 AND COMPLETED.FEW MONTHS AGO HAD SEIZURE BUT NOT TAKING ANY MEDS FOR IT THEN" APPROX 1.5 MONTHS AGO FELL HIT HEAD-HAD CT OF HEAD-FOUND SPOT ON BRAIN-HAD 3 RADIATION TX. History of Any Multi-Drug Resistant Organisms: None Reported Past Surgical History: Appendectomy, Bowel Resection, Hernia Repair, Tonsillectomy Additional Past Surgical History / Comment(s): REMOVED UPPER LOBE OF RT LUNG FOR TUMOR 12/07/2013, PILONDIAL CYST REMOVED YRS AGO, UPPER DENTAL IOMPLANTS, BRONCHOSCOPY, LT CHEST POWER PORT. Past Anesthesia/Blood Transfusion Reactions: No Reported Reaction Smoking Status: Former smoker - Past Family History Father Family Medical History: Cancer Mother Family Medical History: Renal Disease Medications and Allergies Home Medications Medication Instructions Recorded Confirmed Type Docusate Sodium [Dulcolax Stool 100 mg PO TID 02/14/14 01/15/17 History Softener] Tiotropium [place] [Spiriva 4 gm IH RT-DAILY PRN 06/26/16 01/15/17 History Respimat] Fexofenadine HCl [Skye Allergy] 180 mg PO DAILY 12/03/16 01/15/17 History Fluticasone/Salmeterol [Advair 1 inhalation PO RT-BID 12/03/16 01/15/17 History 500-50 Diskus] Levalbuterol Nebulized [Xopenex 1.25 mg INHALATION RT-QID PRN 12/03/16 01/15/17 History Nebulized] Naproxen Sodium/Pseudoephedrin 1 tab PO BID 12/03/16 01/15/17 History [Aleve-D Sinus and Cold Caplet] Opdivo Unknown Dose 1 dose IV Q14D 12/03/16 01/15/17 History diphenhydrAMINE HCL [Benadryl] 50 mg PO HS PRN 12/03/16 01/15/17 History guaiFENesin [Mucinex] 600 mg PO DAILY 12/03/16 01/15/17 History Allergies Allergy/AdvReac Type Severity Reaction Status Date / Time No Known Allergies Allergy Verified 01/15/17 12:31 Physical Exam Osteopathic Statement: *. No significant issues noted on an osteopathic structural exam other than those noted in the History and Physical/Consult. Vitals: Vital Signs Temp Pulse Pulse Resp BP BP Pulse Ox 01/16/17 07:24 118 H 01/16/17 07:14 118 H 01/16/17 07:00 97.6 F 118 H 16 105/77 96 01/16/17 00:00 123 H 17 01/15/17 22:27 98.3 F 123 H 17 110/79 97 01/15/17 19:24 120 H 01/15/17 19:08 118 H 01/15/17 16:52 98 F 124 H 16 122/84 96 01/15/17 16:00 98.0 F 119 H 20 137/89 96 01/15/17 15:22 98.5 F 121 H 22 136/83 99 01/15/17 14:30 118 H 22 138/90 95 01/15/17 14:00 124 H 95 01/15/17 13:43 24 01/15/17 13:30 126 H 20 141/76 95 01/15/17 13:24 126 H 01/15/17 13:19 122 H 01/15/17 12:10 98.3 F 133 H 24 106/72 97 Intake and Output 01/15/17 01/16/17 01/16/17 22:59 06:59 14:59 Intake Total 200 540 Balance 200 540 Intake: Intake, IV Titration 200 Amount Sodium Chloride 0.9% 1, 200 000 ml @ 20 mls/hr IV . Q24H COUNT INCLUDES THE [facility] Rx#:[id number] Oral 540 Other: Voiding Method Toilet Toilet # Voids 4 2 # Bowel Movements 1 1 Weight 106.141 kg No acute distress although is mildly tachypnea. HEENT examination is grossly unremarkable. Mucous membranes are moist. No oral lesions. Neck supple. Full range of motion. No adenopathy or thyromegaly. Neck veins are flat. Cardiovascular examination reveals distant heart sounds. S1-S2 normal. No distinct murmur noted. No S3-S4. Lungs reveal coarse diffuse bilateral rhonchi. Some mild expiratory wheezes. Slight prolongation. Has a very raspy cough. He sounds very congested when he coughs. Abdomen soft bowel sounds are heard. Extremities are intact. No cyanosis clubbing or edema. Skin without rash. Neurologic examination is brief but nonfocal. Results - Laboratory Findings CBC and BMP: 01/15/17 12:55 01/15/17 12:55 PT/INR, D-dimer PT 13.1 sec (9.0-12.0) H 01/15/17 12:55 INR 1.3 (<1.1) 01/15/17 12:55 D-Dimer 2.59 mg/L FEU (<0.60) H 01/15/17 12:55 Abnormal lab findings: Abnormal Labs 01/15/17 01/15/17 01/15/17 12:55 12:55 12:55 Lymphocytes # 0.7 L PT APTT D-Dimer Sodium 136 L Glucose 123 H Total Creatine Kinase 54 L 01/15/17 12:55 Lymphocytes # PT 13.1 H APTT 67.0 H D-Dimer 2.59 H Sodium Glucose Total Creatine Kinase - Diagnostic Findings Chest x-ray: image reviewed CT scan - chest: image reviewed (Labs x-rays a medications are all reviewed.) Assessment and Plan (1) Lung cancer Status: Acute (2) Pericardial effusion Status: Acute (3) Pleural effusion Status: Acute (4) Adenocarcinoma, lung Status: Acute Plan: Plan dated 01/16/2017 The patient will be placed on updrafts 4 times a day and when necessary. We'll also recommend Symbicort 160/4.52 puffs twice a day. We will do stat echocardiogram. The patient will be seen by cardiology. He may need to be seen by cardiothoracic surgery. We'll also make sure he is on some steroids. Additional recommendations suggestions are forthcoming. Prognosis is poor. Most recent computed tomography scan showed advanced lung cancer with worsening of his bulky adenopathy and other findings in his chest. He also has a new lesion in his liver. Time with Patient: Greater than 30
--- NOTE | 2017-01-16 12:54 | ECHOF ---
Referral Reason:rule out cardiac tamponade MEASUREMENTS -------- HEIGHT: 177.8 cm WEIGHT: 106.1 kg BP: 105/77 RVIDd: 2.1 cm (< 3.3) IVSd: 1.0 cm (0.6 - 1.1) LVIDd: 3.2 cm (3.9 - 5.3) LVPWd: 1.0 cm (0.6 - 1.1) IVSs: 1.5 cm LVIDs: 1.5 cm LVPWs: 1.4 cm LAESV Index (A-L): 6.64 ml/m MV E Elvin: 0.87 m/s MV DecT: 143 ms MV A Elvin: 0.26 m/s MV E/A Ratio: 3.36 RAP: 5.00 mmHg RVSP: 8.92 mmHg FINDINGS -------- Sinus rhythm. Resting tachycardia (HR>100bpm). This was a technically adequate study. Patient was coughing and is short of breath when supine, test performed in upright position. The left ventricular size is normal. Left ventricular wall thickness is normal. Overall left ventricular systolic function is normal with, an EF between 55 - 60 %. The right ventricle is normal in size. Normal LA size by volume 22+/-6 ml/m2. The right atrium was not well visualized. The aortic valve is trileaflet, and appears structurally normal. No aortic stenosis or regurgitation. The mitral valve is normal. There is trace mitral regurgitation. Trace tricuspid regurgitation present. There is no evidence of pulmonary hypertension. The right ventricular systolic pressure, as measured by Doppler, is 8.92mmHg. The pulmonic valve was not well visualized. The aortic root size is normal. Normal inferior vena cava with normal inspiratory collapse consistent with estimated right atrial pressure of 5 mmHg. Large global pericardial effusion CONCLUSIONS -------- 1. Resting tachycardia (HR>100bpm). 2. There is trace mitral regurgitation. 3. Trace tricuspid regurgitation present. 4. There is no evidence of pulmonary hypertension. 5. The pulmonic valve was not well visualized. 6. The aortic root size is normal. 7. Large global pericardial effusion 8. This was a technically adequate study. 9. Patient was coughing and is short of breath when supine, test performed in upright position. 10. The left ventricular size is normal. 11. Overall left ventricular systolic function is normal with, an EF between 55 - 60 %. 12. The right ventricle is normal in size. 13. Normal LA size by volume 22+/-6 ml/m2. 14. The right atrium was not well visualized. 15. The aortic valve is trileaflet, and appears structurally normal. No aortic stenosis or regurgitation. SOCK TURNER: Ej Mireles RDCS
--- NOTE | 2017-01-16 12:55 | P.PN ---
<Precious Currie - Last Filed: 01/16/17 12:41> Progress Note - Text DATE OF SERVICE: 01/16/2017 PRESENTING COMPLAINT: Short of breath/cough INTERVAL HISTORY: 60-year-old patient with stage IV lung cancer status post radiation/chemotherapy , presents with shortness of breath, found to have a pericardial effusion likely secondary to lung cancer. Sitting up playing cards with his , appears comfortable, shortness of breath noted with minimal exertion, short distances. Tolerating a diet, states appetite is fair, eats about 50% of his meals, ambulatory to and from the bathroom. Seen by Dr. Peng this morning, 2- D echocardiogram done as well. REVIEW OF SYSTEMS: Done for constitutional ,cardiovascular, GI, pulmonary with relevant findings as above. CURRENT MEDICATIONS DuoNeb, Solu-Medrol, Symbicort, Lovenox, Benadryl, Mucinex, Claritin, melatonin. PHYSICAL EXAM VITAL SIGNS: Temperature 97.6, heart rate 118, respiratory rate 16, blood pressure 105/77, oxygen saturation 96% on room air. GENERAL APPEARANCE:. Sitting up in a chair, not in distress. EYES: Pupils equal. Conjunctiva normal. NECK: JVD not raised. Mass not palpable. RESPIRATORY: Respiratory effort normal. Lungs diminished with mild expiratory wheezing. CARDIOVASCULAR: First and second sounds normal. No edema. ABDOMEN: Soft. Liver and spleen not palpable. No tenderness. No mass palpable. PSYCHIATRY: Alert and oriented x3. Mood and affect normal. INVESTIGATIONS: LABS: None new ECHOCARDIOGRAM: Pending ASSESSMENT: -Stage IV lung cancer having had previous right upper lobe removed in 2013 then received chemotherapy relation treatment now recurrence noted including metastatic of the ribs and mediastinal lymphadenopathy. -Large pericardial effusion likely an extension of lung cancer -Large pleural effusion, could be from malignancy or could be result of immunotherapy -COPD in an X- smoker -Obesity BMI 33.6 -Kidney stones asymptomatic -Primary osteoarthritis in multiple joints bilateral -Sinus tachycardia PLAN: Continue updrafts 4 times a day and when necessary. Await echocardiogram results, await cardiology,cardiothoracic surgery input. Plan of care discussed with patient and at the bedside all questions answered. We will continue to follow closely. RN OPERATING ROOM statement: Patient was seen and examined by nurse practitioner Precious Currie and all elements of the case discussed with attending Dr. Gibbs <Ramakrishna Gibbs Last Filed: 01/16/17 17:04> Progress Note - Text Attending note. Date of service-01/16/2017 This patient was seen and examined by me . I reviewed the note of my nurse practitioner, Ms. Currie. Discussed with her, additional findings as below. This patient admitted with cheststage IV lung cancer. 2-D echocardiogram does show large pericardial effusion with no evidence of tamponade. Cardiothoracic surgery was consulted and they'll look into a pericardial window. Patient baseline is got some shortness of breath. is present. On examination: Lungs-decreased breath sounds and wheezing, psych AO 3, patient sitting on the bed not in distress Investigations: 2-D echo results noted Assessment and plan: Stage IV lung cancer, with pericardial effusion pleural effusion, with COPD exacerbation. Await pericardial window placement.Care was discussed with the patient, and his questions were answered. Await input from oncology
[2017-01-16] MEDS: methylPREDNISolone SOD SUCCI 125 MG/2 ML VIAL IV SCH ×3 (13:29→23:32)
--- NOTE | 2017-01-16 13:33 | P.GSCN ---
<Cindy Kang - Last Filed: 01/16/17 13:26> History of Present Illness Consult date: 01/16/17 Reason for Consult: Pericardial effusion, need for pericardial window. Requesting physician: Kayla Rojo History of present illness: This 61-year-old gentleman presented to the emergency room yesterday after progressive shortness of breath with a previous week. He has been diagnosed with lung cancer and has been receiving treatment. Recently he was also told he had brain metastases with radiation to the brain. He is undergoing immunotherapy with Opdivo. He presented to the emergency room because his shortness of breath was so significant that he couldn't walk more than a few feet without having to sit down. He has been coughing significantly and producing copious amounts of clear phlegm. He denies any fever or chills or chest pain. He did have an x-ray and a CT angiogram in the emergency room. The CT demonstrated no pulmonary embolism however there appeared to be a pericardial effusion. The patient was admitted for treatment. An echocardiogram done this morning demonstrated a large global pericardial effusion. Dr. Broussard cardiothoracic surgery was consulted for a pericardial window. Review of Systems 14 point review systems was completed was negative except as noted. - Constitutional Reports as per HPI - Respiratory Reports as per HPI Past Medical History Past Medical History: Cancer, Pneumonia Additional Past Medical History / Comment(s): constipation,arthritis, KIDNEY STONES,MIGRAINES,RT TORN ROTATOR CUFF, CONSTIPATION." COLON POLYP POSITIVE FOR CANCER-BUT TISSUE SENT FROM [facility] FOR [facility]CER". DX LUNG CA November. 31 RADIATION TX'S AND 4TH ROUND CHEMO GIVEN APR 27, 2014 AND COMPLETED.FEW MONTHS AGO HAD SEIZURE BUT NOT TAKING ANY MEDS FOR IT THEN" APPROX 1.5 MONTHS AGO FELL HIT HEAD-HAD CT OF HEAD-FOUND SPOT ON BRAIN-HAD 3 RADIATION TX. History of Any Multi-Drug Resistant Organisms: None Reported Past Surgical History: Appendectomy, Bowel Resection, Hernia Repair, Tonsillectomy Additional Past Surgical History / Comment(s): REMOVED UPPER LOBE OF RT LUNG FOR TUMOR 12/07/2013, PILONDIAL CYST REMOVED YRS AGO, UPPER DENTAL IOMPLANTS, BRONCHOSCOPY, LT CHEST POWER PORT. Past Anesthesia/Blood Transfusion Reactions: No Reported Reaction Smoking Status: Former smoker - Past Family History Father Family Medical History: Cancer Mother Family Medical History: Renal Disease Medications and Allergies Home Medications Medication Instructions Recorded Confirmed Type Docusate Sodium [Dulcolax Stool 100 mg PO TID 02/14/14 01/15/17 History Softener] Tiotropium [place] [Spiriva 4 gm IH RT-DAILY PRN 06/26/16 01/15/17 History Respimat] Fexofenadine HCl [Skye Allergy] 180 mg PO DAILY 12/03/16 01/15/17 History Fluticasone/Salmeterol [Advair 1 inhalation PO RT-BID 12/03/16 01/15/17 History 500-50 Diskus] Levalbuterol Nebulized [Xopenex 1.25 mg INHALATION RT-QID PRN 12/03/16 01/15/17 History Nebulized] Naproxen Sodium/Pseudoephedrin 1 tab PO BID 12/03/16 01/15/17 History [Aleve-D Sinus and Cold Caplet] Opdivo Unknown Dose 1 dose IV Q14D 12/03/16 01/15/17 History diphenhydrAMINE HCL [Benadryl] 50 mg PO HS PRN 12/03/16 01/15/17 History guaiFENesin [Mucinex] 600 mg PO DAILY 12/03/16 01/15/17 History Allergies Allergy/AdvReac Type Severity Reaction Status Date / Time No Known Allergies Allergy Verified 01/15/17 12:31 Surgical - Exam Vital Signs Temp Pulse Resp BP Pulse Ox 98.3 F 133 H 24 106/72 97 01/15/17 12:10 01/15/17 12:10 01/15/17 12:10 01/15/17 12:10 01/15/17 12:10 - General well developed, well nourished, no distress, no pain - Eyes PERRL, normal ocular movement - ENT no hearing loss - Neck trachea midline - Respiratory Lungs sounds coarse bilaterally. Respirations even, nonlabored. Currently on room air. Patient coughs significantly with any requested to take deep breaths. - Cardiovascular S1, S2 present. Regular rate and rhythm. No edema present. - Abdomen Abdomen: soft, non tender, bowel sounds - Genitourinary Deferred. - Rectum Deferred. - Integumentary no rash - Neurologic normal coordination, normal sensation - Musculoskeletal normal gait - Psychiatric oriented to time, oriented to person, oriented to place, speech is normal, memory intact Results - Labs 01/15/17 12:55 01/15/17 12:55 Abnormal Lab Results - Last 24 Hours (Table) 01/15/17 01/15/17 01/15/17 Range/Units 12:55 12:55 12:55 PT 13.1 H (9.0-12.0) sec APTT 67.0 H (22.0-30.0) sec D-Dimer 2.59 H (<0.60) mg/L FEU Sodium 136 L (137-145) mmol/L Glucose 123 H (74-99) mg/dL Total Creatine Kinase 54 L (55-170) U/L Diabetes panel 01/15/17 Range/Units 12:55 Sodium 136 L (137-145) mmol/L Potassium 4.6 (3.5-5.1) mmol/L Chloride 102 (98-107) mmol/L Carbon Dioxide 24 (22-30) mmol/L BUN 20 (9-20) mg/dL Creatinine 0.98 (0.66-1.25) mg/dL Glucose 123 H (74-99) mg/dL Calcium 9.6 (8.4-10.2) mg/dL AST 29 (17-59) U/L ALT 38 (21-72) U/L Alkaline Phosphatase 54 (38-126) U/L Total Protein 7.2 (6.3-8.2) g/dL Albumin 3.5 (3.5-5.0) g/dL Calcium panel 01/15/17 Range/Units 12:55 Calcium 9.6 (8.4-10.2) mg/dL Albumin 3.5 (3.5-5.0) g/dL Pituitary panel 01/15/17 Range/Units 12:55 Sodium 136 L (137-145) mmol/L Potassium 4.6 (3.5-5.1) mmol/L Chloride 102 (98-107) mmol/L Carbon Dioxide 24 (22-30) mmol/L BUN 20 (9-20) mg/dL Creatinine 0.98 (0.66-1.25) mg/dL Glucose 123 H (74-99) mg/dL Calcium 9.6 (8.4-10.2) mg/dL Adrenal panel 01/15/17 Range/Units 12:55 Sodium 136 L (137-145) mmol/L Potassium 4.6 (3.5-5.1) mmol/L Chloride 102 (98-107) mmol/L Carbon Dioxide 24 (22-30) mmol/L BUN 20 (9-20) mg/dL Creatinine 0.98 (0.66-1.25) mg/dL Glucose 123 H (74-99) mg/dL Calcium 9.6 (8.4-10.2) mg/dL Total Bilirubin 0.7 (0.2-1.3) mg/dL AST 29 (17-59) U/L ALT 38 (21-72) U/L Alkaline Phosphatase 54 (38-126) U/L Total Protein 7.2 (6.3-8.2) g/dL Albumin 3.5 (3.5-5.0) g/dL - Imaging Chest x-ray: image reviewed CT scan - chest: image reviewed Assessment and Plan (1) Lung cancer Status: Acute (2) Pericardial effusion Status: Acute (3) Adenocarcinoma, lung Status: Acute Plan: The patient was seen and examined at the bedside with Dr. Broussard. Chart/ diagnostics were reviewed. Discussed the plan for surgery with the patient and his , all risk benefits were explained, and they agreed to proceed with surgery. Plan for pericardial window as soon as OR room is available. Thank you Dr. Rojo for this consult. We look forward to working to the care of your patient. Time with Patient: Greater than 30 <Musa Broussard - Last Filed: 01/16/17 14:11> Surgical - Exam Vital Signs Temp Pulse Resp BP Pulse Ox 98.3 F 133 H 24 106/72 97 01/15/17 12:10 01/15/17 12:10 01/15/17 12:10 01/15/17 12:10 01/15/17 12:10 Results - Labs 01/15/17 12:55 01/15/17 12:55 Abnormal Lab Results - Last 24 Hours (Table) 01/15/17 Range/Units 12:55 Sodium 136 L (137-145) mmol/L Glucose 123 H (74-99) mg/dL Diabetes panel 01/15/17 Range/Units 12:55 Sodium 136 L (137-145) mmol/L Potassium 4.6 (3.5-5.1) mmol/L Chloride 102 (98-107) mmol/L Carbon Dioxide 24 (22-30) mmol/L BUN 20 (9-20) mg/dL Creatinine 0.98 (0.66-1.25) mg/dL Glucose 123 H (74-99) mg/dL Calcium 9.6 (8.4-10.2) mg/dL AST 29 (17-59) U/L ALT 38 (21-72) U/L Alkaline Phosphatase 54 (38-126) U/L Total Protein 7.2 (6.3-8.2) g/dL Albumin 3.5 (3.5-5.0) g/dL Calcium panel 01/15/17 Range/Units 12:55 Calcium 9.6 (8.4-10.2) mg/dL Albumin 3.5 (3.5-5.0) g/dL Pituitary panel 01/15/17 Range/Units 12:55 Sodium 136 L (137-145) mmol/L Potassium 4.6 (3.5-5.1) mmol/L Chloride 102 (98-107) mmol/L Carbon Dioxide 24 (22-30) mmol/L BUN 20 (9-20) mg/dL Creatinine 0.98 (0.66-1.25) mg/dL Glucose 123 H (74-99) mg/dL Calcium 9.6 (8.4-10.2) mg/dL Adrenal panel 01/15/17 Range/Units 12:55 Sodium 136 L (137-145) mmol/L Potassium 4.6 (3.5-5.1) mmol/L Chloride 102 (98-107) mmol/L Carbon Dioxide 24 (22-30) mmol/L BUN 20 (9-20) mg/dL Creatinine 0.98 (0.66-1.25) mg/dL Glucose 123 H (74-99) mg/dL Calcium 9.6 (8.4-10.2) mg/dL Total Bilirubin 0.7 (0.2-1.3) mg/dL AST 29 (17-59) U/L ALT 38 (21-72) U/L Alkaline Phosphatase 54 (38-126) U/L Total Protein 7.2 (6.3-8.2) g/dL Albumin 3.5 (3.5-5.0) g/dL Assessment and Plan Plan: The patient was seen and examined. I agree with the above assessment and plan. The patient is a 61-year-old male with a known history of metastatic lung cancer. He is currently undergoing chemotherapy. He presented to the hospital with shortness of breath and fatigue. Echocardiogram was performed and revealed a large pericardial effusion. Pericardial window was recommended. The risks, benefits, and alternatives to this procedure were discussed with the patient and his . All questions were answered. Consent was obtained. We will plan on performing this procedure later today.
--- NOTE | 2017-01-16 13:35 | CONS ---
Mr. Baez is a 61-year-old male with known history of non-small size CA diagnosed in 2013, history of metastatic liver and brain disease who has received chemotherapy in the past and subsequently radiation who presented with symptoms of progressive dyspnea and going on for the last 10 days, quite limiting in his physical activity. He has been having some cough, productive of clear sputum. He had no chest discomfort. No peripheral edema and no clear PND or orthopnea, yet he was quite dyspneic and he was tachycardic when he was seen at his oncologist's office. He denies any prior cardiac history. He has no clear PND or orthopnea. He had a CT scan of the chest that showed significant pericardial effusion, but no evidence of pulmonary embolism. His coronary risk factors are remarkable for prior history of smoking, which he stopped in 2009. He has a prior history of hypertension and that he is not on treatment at this time because his blood pressure has been on the lower side with the weight loss. He has no history of documented diabetes mellitus and his lipid profile is not available. His medications at home included Benadryl, Spiriva, Xopenex, Mucinex, Advair, Skye and Dulcolax. REVIEW OF SYSTEMS: RESPIRATORY SYSTEM: He had dyspnea on exertion and cough. No wheezing. GI SYSTEM: He has a history of hemorrhoids with occasional bleeding. SYSTEM: No dysuria or hematuria. NERVOUS SYSTEM: He had a prior history syncope that was thought related to his brain mets. PHYSICAL EXAMINATION: He is a 61-year-old male, alert, oriented, in no apparent distress. Blood pressure is 105/70 with the heart rate in one teens. HEAD: Normocephalic. EYES: Sclerae nonicteric. NECK: No bruit appreciated. I am not able to appreciate the jugular venous pressure. LUNGS: With decreased breath sounds at the bases. HEART: Tachycardia, S1, S2. No S3, no rub. ABDOMEN: Soft, nontender. Positive bowel sounds. No organomegaly. EXTREMITIES: No edema. Lab data revealed a D-dimer of 2.59, INR 1.3. Hemoglobin is 13.4. BUN and creatinine of 20 and 0.98. Troponin less than 0.012. The EKG reveals sinus tachycardia with no acute changes. NT pro-BNP 535. Chest x-ray is consistent with adenopathy in the right paratracheal region with evidence of right-sided effusion. CT angiogram of the chest revealed no evidence of pulmonary embolism with large pericardial effusion and increased right-sided effusion. IMPRESSION: 1. Progressive dyspnea with evidence of pericardial effusion on the CT scan. 2. History of lung cancer with metastasis. 3. Sinus tachycardia. RECOMMENDATION: From the cardiac standpoint, he has no clear evidence of tamponade at this time. I would recommend to obtain a cardiothoracic surgeon consultation. I will have Dr. Broussard see him today to undergo pericardial window. Patient has no evidence of tamponade at this time, but he is quite dyspneic most likely related to the pericardial effusion. I have discussed those findings with him and his and they are in full understanding and agreement. The prognosis is guarded. Thank you for this consult. Will follow with you. VIOLETTE
[2017-01-16 14:12] LABS: Glucose,Whole Blood 105 mg/dL (75-99)
[2017-01-16] MEDS: LACTATED RINGERS 1,000 ML IV ONE ×4 (14:13→16:48)
[2017-01-16] MEDS ORDERED: DEXAMETHASONE SOD PHOS (MDV) 100 MG/10 ML VIAL IVP ONE (14:14)
[2017-01-16] MEDS ORDERED: FAMOTIDINE 20 MG/2 ML VIAL IVP ONE (14:15)
[2017-01-16] MEDS ORDERED: IV FLUID CONTINUATION 1,000 ML IV ONE ×2 (14:24)
[2017-01-16] MEDS ORDERED: MIDAZOLAM 2 MG/2 ML VIAL ONE (14:24)
[2017-01-16] MEDS ORDERED: ESMOLOL 100 MG/10 ML VIAL ONE (14:24)
[2017-01-16] MEDS ORDERED: GLYCOPYRROLATE 0.2 MG/ML 2 ML VIAL ONE (14:24)
[2017-01-16] MEDS ORDERED: ETOMIDATE 2 MG/ML 10 ML VIAL ONE (14:24)
[2017-01-16] MEDS ORDERED: SUCCINYLCHOLINE CHLORIDE 100 MG/5 ML SYR IV ONE (14:24)
[2017-01-16] MEDS ORDERED: NEOSTIGMINE 1 MG/ML 10 ML VIAL ONE (14:24)
[2017-01-16] MEDS ORDERED: PHENYLEPHRINE-0.9% NACL SYG 1 MG/10 ML SYRINGE ONE (14:24)
[2017-01-16] MEDS ORDERED: fentaNYL (PF) 50 MCG/ML 2 ML AMP ONE (14:24)
[2017-01-16] MEDS ORDERED: ROCURONIUM BROMIDE 10 MG/ML 10 ML VIAL IV ONE (14:24)
[2017-01-16] MEDS ORDERED: SODIUM CHLORIDE 0.9% 100 ML with ceFAZolin 2,000 MG IV ONE ×2 (14:47)
[2017-01-16] MEDS ORDERED: LABETALOL 5 MG/ML VIAL MDV IVP ONE (15:58)
[2017-01-16] MEDS ORDERED: METOPROLOL TARTRATE 5 MG/5 ML VIAL IVP ONE ×2 (15:58→16:17)
--- NOTE | 2017-01-16 16:03 | XR ---
EXAMINATION TYPE: XR chest 1V portable DATE OF EXAM: 01/16/2017 COMPARISON: 01/15/2017 HISTORY: Shortness of breath TECHNIQUE: Single frontal view of the chest is obtained. FINDINGS: Mediport catheter is seen with the tip overlying the cavoatrial junction. There is increas ing right-sided consolidation. Tiny effusions not excluded. Heart is enlarged. Underlying COPD suspec tony. Right paratracheal thickening is stable from the previous exam. IMPRESSION: 1. Cardiomegaly which may be secondary to the patient's history of pericardial effusion. 2. Increasing right-sided upper lobe consolidation with chronic appearing right paratracheal thickeni ng. Pulmonary nodule left upper lobe suggested 3. There is a tube overlying the left lower lung base and cardiac silhouette. Correlate clinically. N o sizable pneumothorax.
[2017-01-16 17:32] LABS: Glucose,Whole Blood 122 mg/dL (75-99)
--- NOTE | 2017-01-16 17:51 | P.CONS ---
History of Present Illness - Reason for Consult Consult date: 01/16/17 metastatic NSCLC, on immunotherapy Requesting physician: Ramakrishna Gibbs - Chief Complaint LIBERTY - History of Present Illness Mr. Baez is a very pleasant male pt of Dr. De La Vega who fell and injured his right shoulder October 2013, he had a CXR at that time which showed a mass in the RUL, CT chest on 11/04/2013 revealed a 2.8 x 2.1 x 2.1 cm mass in the RUL of the lung, right paratracheal and hilar adenopathy. His work up was complicated for multiple reasons but eventually on 12/06/13 he had right thoracotomy and right upper lobe wedge resection which revealed a grade I, 2.7cm invasive adenocarcinoma, one azygous node was negative. Staging PET 2013 revealed no suspicious uptake, brain MRI was negative. 01/31/14 he started adjuvant cisplatin/BELT SANDER-16 concurrently with radiation therapy. He complete treatment late 2013 and treatment follow up PET 06/24/14 revealed no suspicious uptake. He was placed on follow up and did well until May 2016 when he presented with progressive cough. Dr. Gomez did bronchoscopy on 06/27/2016 and transbronchial biopsy on RLL was positive for adenocarcinoma, CT CAP revealed significant progression of his disease in the chest with bilateral lung nodules. He completed palliative XRT for his cough . He started carboplatin/alimta 07/31/16 and he completed 4 cycles on 10/09/16. Treatment follow up CT scan revealed new multiple small lung nodules, small right pleural and pericardial effusion, alimta/carboplatin were discontinued and he started nivolumab 11/13/16 and had 2 cycle when on 12/03/16 pt fell and hit his head, CT brain revealed a small hemorrhagic lesion in left parietal lobe , MRI revealed 1.2 cm lesion in left frontal parietal lobe and smaller 3mm lesion. He had stereotactic XRT and 1 cycle of opdivo was delayed. Pt came to office 01/15/17 for acute visit. he has had 4 treatments, most recent last week and had been going "downhill since", his breathing was terrible, could not walk 10 feet without having to sit and catch his breath, "don't feel like I'm getting a lot of air". Appetite progressively declining, progressive weakness. He was found to be tachycardia with abnormal EKG, he was sent ot ER and admitted with progressive pericardial effusion, CTA did not reveal PE. Pt seen this AM, states feeling a little better since admit but still SOB, activity intolerant, no fever, nausea, diarrhea, he has to treat constipation. Review of Systems All systems: negative Constitutional: Reports as per HPI Past Medical History Past Medical History: Cancer, Pneumonia Additional Past Medical History / Comment(s): constipation,arthritis, KIDNEY STONES,MIGRAINES,RT TORN ROTATOR CUFF, CONSTIPATION." COLON POLYP POSITIVE FOR CANCER-BUT TISSUE SENT FROM [facility] FOR CANCER". DX LUNG CA November. 33 RADIATION TX'S AND 4TH ROUND CHEMO GIVEN APR 27, 2014 AND COMPLETED.FEW MONTHS AGO HAD SEIZURE BUT NOT TAKING ANY MEDS FOR IT THEN" APPROX 1.5 MONTHS AGO FELL HIT HEAD-HAD CT OF HEAD-FOUND SPOT ON BRAIN-HAD 3 RADIATION TX. History of Any Multi-Drug Resistant Organisms: None Reported Past Surgical History: Appendectomy, Bowel Resection, Hernia Repair, Tonsillectomy Additional Past Surgical History / Comment(s): REMOVED UPPER LOBE OF RT LUNG FOR TUMOR 12/07/2013, PILONDIAL CYST REMOVED YRS AGO, UPPER DENTAL IOMPLANTS, BRONCHOSCOPY, LT CHEST POWER PORT. Past Anesthesia/Blood Transfusion Reactions: No Reported Reaction Smoking Status: Former smoker - Past Family History Father Family Medical History: Cancer Mother Family Medical History: Renal Disease Medications and Allergies Home Medications Medication Instructions Recorded Confirmed Type Docusate Sodium [Dulcolax Stool 100 mg PO TID 02/14/14 01/15/17 History Softener] Tiotropium [place] [Spiriva 4 gm IH RT-DAILY PRN 06/26/16 01/15/17 History Respimat] Fexofenadine HCl [Skye Allergy] 180 mg PO DAILY 12/03/16 01/15/17 History Fluticasone/Salmeterol [Advair 1 inhalation PO RT-BID 12/03/16 01/15/17 History 500-50 Diskus] Levalbuterol Nebulized [Xopenex 1.25 mg INHALATION RT-QID PRN 12/03/16 01/15/17 History Nebulized] Naproxen Sodium/Pseudoephedrin 1 tab PO BID 12/03/16 01/15/17 History [Aleve-D Sinus and Cold Caplet] Opdivo Unknown Dose 1 dose IV Q14D 12/03/16 01/15/17 History diphenhydrAMINE HCL [Benadryl] 50 mg PO HS PRN 12/03/16 01/15/17 History guaiFENesin [Mucinex] 600 mg PO DAILY 12/03/16 01/15/17 History Allergies Allergy/AdvReac Type Severity Reaction Status Date / Time No Known Allergies Allergy Verified 01/16/17 14:22 Physical Exam Vitals: Vital Signs Temp Pulse Pulse Resp BP BP Pulse Ox 01/16/17 11:26 108 H 01/16/17 11:17 108 H 01/16/17 07:24 118 H 01/16/17 07:14 118 H 01/16/17 07:00 97.6 F 118 H 16 105/77 96 01/16/17 00:00 123 H 17 01/15/17 22:27 98.3 F 123 H 17 110/79 97 01/15/17 19:24 120 H 01/15/17 19:08 118 H 01/15/17 16:52 98 F 124 H 16 122/84 96 01/15/17 16:00 98.0 F 119 H 20 137/89 96 01/15/17 15:22 98.5 F 121 H 22 136/83 99 01/15/17 14:30 118 H 22 138/90 95 01/15/17 14:00 124 H 95 01/15/17 13:43 24 01/15/17 13:30 126 H 20 141/76 95 01/15/17 13:24 126 H 01/15/17 13:19 122 H Intake and Output 01/15/17 01/16/17 01/16/17 22:59 06:59 14:59 Intake Total 200 540 Balance 200 540 Intake: Intake, IV Titration 200 Amount Sodium Chloride 0.9% 1, 200 000 ml @ 20 mls/hr IV . Q24H [facility] Rx#:[id number] Oral 540 Other: Voiding Method Toilet Toilet # Voids 4 2 # Bowel Movements 1 1 Weight 106.141 kg - Constitutional General appearance: cooperative, mild distress, obese - EENT Eyes: anicteric sclerae, EOMI, normal appearance ENT: hearing grossly normal, normal oropharynx - Neck Neck: no lymphadenopathy - Respiratory visibly respirations are labored at rest, has to pause when speaking Respiratory: bilateral: wheezing (scattered, R>L) - Cardiovascular distant heart tones, tachycardia Heart sounds: normal: S1 (tachycardia), S2 leg Peripheral Edema: bilateral: None - Gastrointestinal General gastrointestinal: no absent bowel sounds, no decreased bowel sounds, no distended, no hepatomegaly, no hyperactive bowel sounds, normal bowel sounds, no organomegaly, no rigid, no scaphoid, soft, no splenomegaly, no tenderness, no umbilical hernia, no ventral hernia - Integumentary Integumentary: normal - Neurologic Neurologic: CNII-XII intact - Musculoskeletal Musculoskeletal: strength equal bilaterally - Psychiatric Psychiatric: A&O x's 3, appropriate affect, intact judgment & insight Results CBC & Chem 7: 01/15/17 12:55 01/15/17 12:55 Labs: Abnormal Lab Results - Last 24 Hours (Table) 01/15/17 01/15/17 01/15/17 Range/Units 12:55 12:55 12:55 Lymphocytes # 0.7 L (1.0-4.8) k/uL PT (9.0-12.0) sec APTT (22.0-30.0) sec D-Dimer (<0.60) mg/L FEU Sodium 136 L (137-145) mmol/L Glucose 123 H (74-99) mg/dL Total Creatine Kinase 54 L (55-170) U/L 01/15/17 Range/Units 12:55 Lymphocytes # (1.0-4.8) k/uL PT 13.1 H (9.0-12.0) sec APTT 67.0 H (22.0-30.0) sec D-Dimer 2.59 H (<0.60) mg/L FEU Sodium (137-145) mmol/L Glucose (74-99) mg/dL Total Creatine Kinase (55-170) U/L Comments: ECHO report reviewed Chest x-ray: report reviewed CT scan - chest: report reviewed Assessment and Plan (1) Adenocarcinoma, lung Narrative/Plan: Pt is currently s/p 4th cycle of nivolumab, he did have a 3 week break after cycle 2 as he had brain radiation for brain mets. CTA results in regards to malignancy were reviewed with pt and daughter. Immunotherapy treatment imaging is not recommended until at least 6-8 cycles have been given because swelling from inflammation and the immune process can be mistaken for progression, also new areas can be identified due to the therapy making areas of disease that were not previously visible on imaging visible. Of course disease progression is possible but, in early treatment with immunotherapy subjective evaluation is recommended so, pt has pericardial effusion that could certaily be the the underlying cause of his acute symptoms so, we will await treatment and see how pt does and make decisions as to the effectiveness of treatment. Status: Chronic
[2017-01-16] MEDS: SODIUM CHLORIDE 0.9% 1,000 ML IV SCH (18:47)
[2017-01-16 21:51] LABS: Glucose,Whole Blood 172 mg/dL (75-99)
[2017-01-16] MEDS: MELATONIN 5 MG TABLET PO SCH (22:16)
[2017-01-16] MEDS: INSULIN LISPRO (humaLOG) 300 UNIT/3 ML VIAL SQ SCH (22:16)
[2017-01-17] MEDS: methylPREDNISolone SOD SUCCI 125 MG/2 ML VIAL IV SCH ×4 (06:06→23:59)
[2017-01-17 06:27] LABS: Glucose,Whole Blood 182 mg/dL (75-99)
--- NOTE | 2017-01-17 06:33 | OP ---
DATE OF SURGERY: 01/16/2017 SURGEON: Musa Broussard MD BISTRO SERVER: None. PREOPERATIVE DIAGNOSIS: Pericardial effusion. POSTOPERATIVE DIAGNOSIS: Pericardial effusion. PROCEDURE: Pericardial window. ANESTHESIA: General. ESTIMATED BLOOD LOSS: Minimal. COMPLICATIONS: None. SPECIMENS: 1. Pericardial fluid. 2. Pericardial tissue. INDICATION: The patient is a 61-year-old male with a history of stage IV lung cancer. He is currently on chemotherapy. He presented to the hospital complaining of worsening shortness of breath. Workup included an echocardiogram , which revealed a large pericardial effusion. Pericardial window was recommended. The risks, benefits, alternatives to this procedure were discussed at length with the patient and his . All questions were answered. Consent was obtained. FINDINGS: There was approximately 600 mL of serous fluid drained from the pericardial space. PROCEDURE DETAIL: The patient was taken to the operating room and placed supine on the operating room table. After the induction of general anesthesia, he was prepped and draped in the usual sterile fashion. An arterial line was placed by the anesthesia service. He remained hemodynamically stable. A vertical midline epigastric incision was performed. Dissection was taken down through the subcutaneous tissue. The xiphoid process was identified and resected. Dissection continued down and the pericardium was identified. Soft tissue and fat were cleared off its surface. Using a scalpel, a small incision was created in the pericardium. Approximately 600 mL of serous fluid was encountered and drained. A portion of this was sent to microbiology and the remainder sent to cytology. A portion of the pericardial tissue itself was excised. A small piece was sent to microbiology and the remainder sent to pathology. A right angled 32 [place] chest tube was placed and directed into a retrocardiac space. It was secured to the skin using a suture. Hemostasis was assured. The wound was then closed in layers. A sterile dressing was applied. The patient appeared to tolerate the procedure well. There are no immediate complications. Of note, the patient's hemodynamics did not significantly change after drainage of the fluid. He returned to the recovery room in stable condition. VIOLETTE
[2017-01-17] MEDS: INSULIN LISPRO (humaLOG) 300 UNIT/3 ML VIAL SQ SCH ×4 (06:57→21:41)
[2017-01-17] MEDS: ENOXAPARIN 40 MG/0.4 ML SYRINGE SQ SCH (08:08)
[2017-01-17] MEDS: guaiFENesin 600 MG TABLET.ER PO SCH (08:08)
[2017-01-17] MEDS: LORATADINE 10 MG TAB PO SCH (08:09)
[2017-01-17] MEDS: IPRATROPIUM-ALBUTEROL 3 ML NEB INHALATION SCH ×4 (08:12→19:39)
--- NOTE | 2017-01-17 08:13 | XR ---
EXAMINATION TYPE: XR chest 1V portable DATE OF EXAM: 01/17/2017 COMPARISON: Prior chest x-ray 01/16/2017 HISTORY: Status post chest tube insertion TECHNIQUE: Single frontal view of the chest is obtained. FINDINGS: Left-sided chest tube overlies the heart. Port-A-Cath is stable with the distal tip in the right atrium. Final loss and vague increased density persists in the right lung. There is abnormal p aratracheal density. No evident pneumothorax or sizable effusion. Heart remains enlarged. IMPRESSION: Similar findings to prior exam. Stable chest tube placement.
[2017-01-17] MEDS: SYMBICORT 160-4.5 MCG INHALER INHALATION SCH ×2 (08:14→19:39)
--- NOTE | 2017-01-17 08:28 | P.PN ---
Subjective Principal diagnosis: Pericardial effusion. Metastatic lung cancer, receiving treatment. POD #1 pericardial window Patient's currently sitting up in the chair in no acute distress. Denies pain. Tolerating diet. Objective - Vital Signs Vital signs: Vital Signs Temp 97 F L 01/17/17 04:00 Pulse 116 H 01/17/17 08:14 Resp 18 01/17/17 07:22 BP 124/81 01/17/17 04:00 Pulse Ox 98 01/17/17 04:00 Intake & Output 01/16/17 01/17/17 01/17/17 18:59 06:59 18:59 Intake Total 1410 840 Output Total 45 850 Balance 1365 -10 Weight 105.3 kg Intake: IV 1050 240 Sodium Chloride 0.9% 1, 240 000 ml @ 20 mls/hr IV . Q24H [facility] Rx#:[id number] Oral 360 600 Output: Drainage 50 Anterior Chest 50 Urine 800 Estimated Blood Loss 45 Other: Voiding Method Toilet Urinal Urinal # Voids 1 - Constitutional General appearance: Present: cooperative, no acute distress - Respiratory Details: Lungs sounds diminished bilaterally, coarse breath sounds heard bilaterally. Respirations even, nonlabored. Currently on room air with oxygen saturation 96% . Able to achieve 7420-1357 mL on his incentive spirometry. - Cardiovascular Details: S1, S2 present. Tachycardia rate, regular rhythm, sinus tach on telemetry. Mediastinal chest tube to waterseal, 50 mL bloody drainage overnight, 145 mL total drainage since surgery. - Gastrointestinal Gastrointestinal Comment(s): Abdomen soft, nontender, nondistended. Active bowel sounds 4 quadrants. Tolerating diet. - Genitourinary Genitourinary Comment(s): Continues to void clear, yellow urine. - Musculoskeletal Musculoskeletal: Present: gait normal, strength equal bilaterally - Psychiatric Psychiatric: Present: A&O x's 3, appropriate affect, intact judgment & insight - Allied health notes Allied health notes reviewed: nursing - Labs CBC & Chem 7: 01/15/17 12:55 01/15/17 12:55 Labs: Abnormal Lab Results - Last 24 Hours (Table) 01/16/17 01/16/17 01/16/17 Range/Units 14:09 17:12 20:59 POC Glucose (mg/dL) 105 H 122 H 172 H (75-99) mg/dL 01/17/17 Range/Units 05:53 POC Glucose (mg/dL) 182 H (75-99) mg/dL Microbiology - Last 24 Hours (Table) 01/16/17 15:09 Gram Stain - Preliminary Pericardial Fluid Body Fluid Culture - Preliminary 01/16/17 15:09 Gram Stain - Preliminary Pericardial Fluid Tissue Culture - Preliminary 01/16/17 15:09 Anaerobic Culture - Preliminary Pericardial Fluid 01/16/17 15:09 Anaerobic Culture - Preliminary Tissue - Other - Imaging and Cardiology Chest x-ray: image reviewed Assessment and Plan (1) Lung cancer Status: Acute (2) Pericardial effusion Status: Acute (3) Adenocarcinoma, lung Status: Chronic Plan: 1. Will continue to monitor mediastinal chest tube output and will discontinue when appropriate. 2. Medical management per primary/oncology services. 3. Encourage incentive spirometry. 4. More recommendations as patient progresses. Time with Patient: Greater than 30
[2017-01-17] MEDS: ACETAMINOPHEN TAB 325 MG TAB PO PRN (08:47)
[2017-01-17] MEDS ORDERED: METOPROLOL TARTRATE 25 MG TAB PO STA (10:19)
[2017-01-17 12:13] LABS: Glucose,Whole Blood 141 mg/dL (75-99)
[2017-01-17] MEDS: NAPROXEN 250 MG TAB PO PRN (12:19)
--- NOTE | 2017-01-17 13:18 | P.PN ---
Subjective Progress note dated 01/17/2017 The patient went for a pericardial window yesterday. It was done by Dr. Broussard. The patient feels better today. Doing relatively well. Relatively large pericardial effusion. The patient still coughing. Producing phlegm. Lots of chest congestion. Is feeling better though. Objective - Vital Signs Vital signs: Vital Signs Temp 97.5 F L 01/17/17 08:00 Pulse 116 H 01/17/17 11:38 Resp 20 01/17/17 08:00 BP 154/77 01/17/17 08:00 Pulse Ox 97 01/17/17 08:00 Intake & Output 01/16/17 01/17/17 01/17/17 18:59 06:59 18:59 Intake Total 1410 840 Output Total 45 850 Balance 1365 -10 Weight 105.3 kg Intake: IV 1050 240 Sodium Chloride 0.9% 1, 240 000 ml @ 20 mls/hr IV . Q24H [facility] Rx#:[id number] Oral 360 600 Output: Drainage 50 Anterior Chest 50 Urine 800 Estimated Blood Loss 45 Other: Voiding Method Toilet Urinal Urinal # Voids 1 - Exam No acute distress, oriented 3. HEENT examination is grossly unremarkable. Mucous membranes are moist. No oral lesions. Neck supple. Full range of motion. No adenopathy. Neck veins are flat. Cardiovascular examination reveals regular rhythm with rhythm rate. Heart sounds are still distant. S1-S2 normal. No murmur. No S3 or S4. Lungs reveal some coarse expiratory respiratory rhonchi. Breath sounds are diminished. He coughs quite a bit with deep breathing. Abdomen soft bowel sounds are heard. Extremities are intact no cyanosis clubbing or edema. Skin is without rash or lesion. Neurologic examination nonfocal. - Labs CBC & Chem 7: 01/15/17 12:55 01/15/17 12:55 Labs: Abnormal Lab Results - Last 24 Hours (Table) 01/15/17 01/16/17 01/16/17 Range/Units 12:55 14:09 17:12 POC Glucose (mg/dL) 105 H 122 H (75-99) mg/dL TSH 0.352 L (0.465-4.680) mIU/L 01/16/17 01/17/17 01/17/17 Range/Units 20:59 05:53 12:04 POC Glucose (mg/dL) 172 H 182 H 141 H (75-99) mg/dL TSH (0.465-4.680) mIU/L Microbiology - Last 24 Hours (Table) 01/16/17 15:09 Gram Stain - Preliminary Pericardial Fluid Body Fluid Culture - Preliminary 01/16/17 15:09 Gram Stain - Preliminary Pericardial Fluid Tissue Culture - Preliminary 01/16/17 15:09 Anaerobic Culture - Preliminary Pericardial Fluid 01/16/17 15:09 Anaerobic Culture - Preliminary Tissue - Other Assessment and Plan (1) Lung cancer Status: Acute (2) Pericardial effusion Status: Acute (3) Pleural effusion Status: Acute (4) Adenocarcinoma, lung Status: Chronic Plan: Plan dated 01/16/2017 The patient will be placed on updrafts 4 times a day and when necessary. We'll also recommend Symbicort 160/4.52 puffs twice a day. We will do stat echocardiogram. The patient will be seen by cardiology. He may need to be seen by cardiothoracic surgery. We'll also make sure he is on some steroids. Additional recommendations suggestions are forthcoming. Prognosis is poor. Most recent computed tomography scan showed advanced lung cancer with worsening of his bulky adenopathy and other findings in his chest. He also has a new lesion in his liver. Plan dated 01/17/2017 The patient had a pericardial window performed by Dr. Broussard yesterday. He clinically feels a bit better. The patient's medications were reviewed yesterday. An echocardiogram was done stat yesterday. Read by one of the cardiologists. Anyway the patient does look better and feel better. We'll continue to follow. His overall prognosis is very poor given the fact that he has advanced non-small cell lung cancer with a brain met and a new liver lesion. He's undergone chemotherapy for rounds brain irradiation for the brain lesion and was placed on immunotherapy with OPDIVO. Time with Patient: Less than 30
--- NOTE | 2017-01-17 14:13 | P.PN ---
Subjective Principal diagnosis: Pericardial effusion Selective pleasant 61-year-old gentleman with a known history of non-small cell lung CA diagnosed in 2013 and metastasis to the liver and brain who is received chemotherapy in the past and subsequently radiation. Presented to the emergency department with symptoms of progressive dyspnea been ongoing for the last 10 days physical activity had been quite limited. His computed tomography scan of the chest that showed significant pericardial effusion. Patient subsequently underwent pericardial window by Dr. Broussard with removal of 600 mL of serous fluid. On examination, patient is sitting up in a chair at the bedside. He is feeling quite a bit better, breathing easier. Heart rate remains elevated in the 110 range. Objective - Vital Signs Vital signs: Vital Signs Temp 97.9 F 01/17/17 12:00 Pulse 112 H 01/17/17 12:00 Resp 18 01/17/17 12:00 BP 114/73 01/17/17 12:00 Pulse Ox 94 L 01/17/17 12:00 Intake & Output 01/16/17 01/17/17 01/17/17 18:59 06:59 18:59 Intake Total 1410 840 Output Total 45 850 800 Balance 1365 -10 -800 Weight 105.3 kg Intake: IV 1050 240 Sodium Chloride 0.9% 1, 240 000 ml @ 20 mls/hr IV . Q24H [facility] Rx#:[id number] Oral 360 600 Output: Drainage 50 Anterior Chest 50 Urine 800 800 Estimated Blood Loss 45 Other: Voiding Method Toilet Urinal Urinal # Voids 1 - Exam PHYSICAL EXAMINATION: HEENT: Head is atraumatic, normocephalic. Pupils equal, round. Neck is supple. There is no elevated jugular venous pressure. HEART EXAMINATION: Heart sounds regular, S1 and S2 with a rub, tachycardia. CHEST EXAMINATION: Lungs reveal diminished air entry throughout. No chest wall tenderness is noted on palpation or with deep breathing. ABDOMEN: Soft, nontender. Bowel sounds are heard. No organomegaly noted. EXTREMITIES: 2+ peripheral pulses with no evidence of peripheral edema and no calf tenderness noted. NEUROLOGIC patient is awake, alert and oriented x3. . - Labs CBC & Chem 7: 01/15/17 12:55 01/15/17 12:55 Labs: Abnormal Lab Results - Last 24 Hours (Table) 01/15/17 01/16/17 01/16/17 Range/Units 12:55 14:09 17:12 POC Glucose (mg/dL) 105 H 122 H (75-99) mg/dL TSH 0.352 L (0.465-4.680) mIU/L 01/16/17 01/17/17 01/17/17 Range/Units 20:59 05:53 12:04 POC Glucose (mg/dL) 172 H 182 H 141 H (75-99) mg/dL TSH (0.465-4.680) mIU/L Microbiology - Last 24 Hours (Table) 01/16/17 15:09 Gram Stain - Preliminary Pericardial Fluid Body Fluid Culture - Preliminary 01/16/17 15:09 Gram Stain - Preliminary Pericardial Fluid Tissue Culture - Preliminary 01/16/17 15:09 Anaerobic Culture - Preliminary Pericardial Fluid 01/16/17 15:09 Anaerobic Culture - Preliminary Tissue - Other Assessment and Plan Plan: Assessment and plan #1 large pericardial effusion, status post pericardial window #2 of non-small cell lung CA with metastasis #3 sinus tachycardia From a cardiac standpoint, repeat 2-D echo with Doppler on Friday. We will check TSH and T4 to assess for thyroid dysfunction as patient is tachycardic. We will add a beta kyree at this time. Further recommendations to follow. [employer] note has been reviewed, I agree with a documented findings and plan of care. Patient was seen and examined.
[2017-01-17] MEDS: METOPROLOL TARTRATE 25 MG TAB PO SCH ×2 (15:12→21:41)
[2017-01-17] MEDS: SODIUM CHLORIDE 0.9% 1,000 ML IV SCH (15:13)
--- NOTE | 2017-01-17 15:58 | P.PN ---
<Precious Currie - Last Filed: 01/17/17 15:29> Progress Note - Text DATE OF SERVICE: 01/17/2017 PRESENTING COMPLAINT: Short of breath/cough INTERVAL HISTORY: 60-year-old patient with stage IV lung cancer status post radiation/chemotherapy , presents with shortness of breath, found to have a pericardial effusion likely secondary to lung cancer. 01/16/2017: Sitting up playing cards with his , appears comfortable, shortness of breath noted with minimal exertion, short distances. Tolerating a diet, states appetite is fair, eats about 50% of his meals, ambulatory to and from the bathroom. Seen by Dr. Peng this morning, 2-D echocardiogram done as well. 01/17/2017: He was taken to have a pericardial window performed on 01/16/2017, for which they removed removed 600 mL of serous drainage. Chest tube remains in place, positive for flu. Patient has long-standing sinus tachycardia for which cardiology is going to investigate further for possible thyroid dysfunction. breathing a bit better, cough and producing phlegm tolerating his diet, ambulatory in the room, moving his bowels. REVIEW OF SYSTEMS: Done for constitutional ,cardiovascular, GI, pulmonary with relevant findings as above. CURRENT MEDICATIONS DuoNeb, Solu-Medrol, Symbicort, Lovenox, Benadryl, Mucinex, Claritin, melatonin. PHYSICAL EXAM VITAL SIGNS: Temperature 97.6, heart rate 118, respiratory rate 16, blood pressure 105/77, oxygen saturation 96% on room air. GENERAL APPEARANCE:. Sitting up in a chair, not in distress. EYES: Pupils equal. Conjunctiva normal. NECK: JVD not raised. Mass not palpable. RESPIRATORY: Respiratory effort normal. Lungs diminished with very coarse breath sounds bilaterally and expiratory wheezing. CARDIOVASCULAR: First and second sounds normal. No edema. ABDOMEN: Soft. Liver and spleen not palpable. No tenderness. No mass palpable. PSYCHIATRY: Alert and oriented x3. Mood and affect normal. INVESTIGATIONS: LABS: None new ECHOCARDIOGRAM: Tachycardia, large global pericardial effusion, EF between 55 and 60%, ASSESSMENT: -Stage IV lung cancer having had previous right upper lobe removed in 2013 then received chemotherapy relation treatment now recurrence noted including metastatic of the ribs and mediastinal lymphadenopathy. -Large pericardial effusion likely an extension of lung cancer, improving -Large pleural effusion, could be from malignancy or could be result of immunotherapy -COPD in an X- smoker -Obesity BMI 33.6 -Kidney stones asymptomatic -Primary osteoarthritis in multiple joints bilateral -Sinus tachycardia PLAN: Repeat 2-D echo with Doppler on Friday, follow-up on thyroid function tests, beta kyree added for tachycardia. Await input from oncology. Plan of care discussed with the patient and at the bedside questions answered we'll continue to follow closely. CULINARY ARTIST statement: Patient was seen and examined by nurse practitioner Precious Currie and all elements of the case discussed with attending Dr. Gibbs <Ramakrishna Gibbs - Last Filed: 01/17/17 19:38> Progress Note - Text Attending note. Date of service-01/17/2017 This patient was seen and examined by me . I reviewed the note of my nurse practitioner, Ms. Currie. Discussed with her, additional findings as below. This very pleasant gentleman with stage IV lung cancer/adenocarcinoma presented with shortness of breath. [place] to have COPD exacerbation also do pericardial window done. That was drained about 600 mL. Chest drain in place to suction. During his breathing treatments. Breathing somewhat better. Lungs On examination: Lungs-decreased but some mild wheezing, psych AO 3 Investigations: Stage IV lung cancer/adenocarcinoma with pericardial effusion status post pericardial window. Acute COPD exacerbation Assessment and plan: continue current medication treatment plan. Follow with oncology recommendations and the interaction. Care discussed with the and patient. Patient does state that he is always had sinus tachycardia
[2017-01-17 17:11] LABS: Glucose,Whole Blood 183 mg/dL (75-99)
--- NOTE | 2017-01-17 17:56 | P.PN ---
Subjective Principal diagnosis: Difficulty in breathing, tachycardia Patient is seen today in follow-up. He is post pericardial window with mediastinal drain in place. Patient is sitting up in the chair playing would not play with his family. Patient states feeling much better, his cough is significantly decreased, he does not feel short of breath when speaking, he is feeling like he can move around with less shortness of breath and weakness. She denies any fevers, nausea, he has some discomfort in the area of the tube insertion but nothing unrealistic, he is able to expectorate and has been spitting up frothy/whitish sputum and large amounts, he denies any abdominal pain, he is noticed increased urination, no complaints about diarrhea or constipation. Objective - Vital Signs Vital signs: Vital Signs Temp 97.9 F 01/17/17 12:00 Pulse 101 H 01/17/17 16:07 Resp 18 01/17/17 12:00 BP 114/73 01/17/17 12:00 Pulse Ox 91 L 01/17/17 15:58 Intake & Output 01/16/17 01/17/17 01/17/17 18:59 06:59 18:59 Intake Total 1410 840 Output Total 45 850 800 Balance 1365 -10 -800 Weight 105.3 kg Intake: IV 1050 240 Sodium Chloride 0.9% 1, 240 000 ml @ 20 mls/hr IV . Q24H [facility] Rx#:[id number] Oral 360 600 Output: Drainage 50 Anterior Chest 50 Urine 800 800 Estimated Blood Loss 45 Other: Voiding Method Toilet Urinal Urinal # Voids 1 - Constitutional General appearance: Present: cooperative, no acute distress, obese - EENT Eyes: Present: anicteric sclerae, PERRLA - Respiratory Respiratory: bilateral: rales (improved air entry bilaterally) - Cardiovascular Details: Mild tachycardia, distant heart sounds - Peripheral edema leg Peripheral Edema: bilateral: Trace - Gastrointestinal General gastrointestinal: Present: normal bowel sounds, soft - Integumentary Integumentary: Present: normal - Neurologic Neurologic: Present: CNII-XII intact - Musculoskeletal Musculoskeletal: Present: strength equal bilaterally - Psychiatric Psychiatric: Present: A&O x's 3, appropriate affect, intact judgment & insight - Labs CBC & Chem 7: 01/15/17 12:55 01/15/17 12:55 Labs: Abnormal Lab Results - Last 24 Hours (Table) 01/15/17 01/16/17 01/17/17 Range/Units 12:55 20:59 05:53 POC Glucose (mg/dL) 172 H 182 H (75-99) mg/dL TSH 0.352 L (0.465-4.680) mIU/L 01/17/17 01/17/17 Range/Units 12:04 17:06 POC Glucose (mg/dL) 141 H 183 H (75-99) mg/dL TSH (0.465-4.680) mIU/L Microbiology - Last 24 Hours (Table) 01/16/17 15:09 Gram Stain - Preliminary Pericardial Fluid Tissue Culture - Preliminary 01/16/17 15:09 Gram Stain - Preliminary Pericardial Fluid Body Fluid Culture - Preliminary 01/16/17 15:09 Anaerobic Culture - Preliminary Pericardial Fluid 01/16/17 15:09 Anaerobic Culture - Preliminary Tissue - Other Assessment and Plan (1) Adenocarcinoma, lung Narrative/Plan: Pt is currently s/p 4th cycle of nivolumab. Underlying cause of acute symptoms certainly appears to be pericardial effusion. Since pericardial window patient' s respiratory status, weakness and activity intolerance has significantly improved. We will defer to cardiology for ongoing management. Results of patient's recent CTA were again reviewed with patient and . As stated previously Immunotherapy treatment imaging is not recommended until at least 6-8 cycles have been given because swelling from inflammation and the immune process can be mistaken for progression, also new areas can be identified due to the therapy making areas of disease that were not previously visible on imaging, visible. Of course disease progression is possible but, in early treatment with immunotherapy subjective evaluation is recommended. Pt is improving significantly after treatment of pericardial effusion. As soon as patient is weaned adequately off steroids and has recovered from pericardial window procedure patient will continue on immunotherapy unless other symptoms or complications arise. Status: Chronic
[2017-01-17 20:43] LABS: Glucose,Whole Blood 161 mg/dL (75-99)
[2017-01-17] MEDS: MELATONIN 5 MG TABLET PO SCH (21:41)
[2017-01-18 05:44] LABS: Glucose,Whole Blood 138 mg/dL (75-99)
[2017-01-18] MEDS: methylPREDNISolone SOD SUCCI 125 MG/2 ML VIAL IV SCH ×4 (06:34→23:38)
[2017-01-18] MEDS: INSULIN LISPRO (humaLOG) 300 UNIT/3 ML VIAL SQ SCH ×4 (06:34→20:17)
--- NOTE | 2017-01-18 07:59 | XR ---
EXAMINATION TYPE: XR chest 1V portable DATE OF EXAM: 01/18/2017 CLINICAL HISTORY: Difficulty breathing progress study. Post open lung surgery. TECHNIQUE: Single AP portable upright view of the chest is obtained. COMPARISON: Chest x-ray from one day earlier. CTA chest 3 days ago. FINDINGS: There is stable left subclavian Mediport catheter. Cardiac silhouette size is stable and u pper limits of normal with overlying chest tube. There is persistent elevated right hemidiaphragm and suspected small right pleural effusion. Improved aeration in the right midlung. There is background chronic emphysematous change. Left lung remains clear. Right-sided volume loss with tracheal shift is redemonstrated. Increased density right paratracheal region is noted. Osseous structures are intact. Multiple small nodules throughout left lung are seen better on CT IMPRESSION: There is persistent small to moderate-sized right pleural effusion and right upper lung m edial masslike consolidation and/or atelectasis redemonstrated. Improved aeration right midlung is no tony. Right-sided volume loss is stable. Chest tube draining pericardial effusion is redemonstrated. N o new infiltrate is seen.
[2017-01-18] MEDS: ENOXAPARIN 40 MG/0.4 ML SYRINGE SQ SCH (08:30)
[2017-01-18] MEDS: LORATADINE 10 MG TAB PO SCH (08:31)
[2017-01-18] MEDS: METOPROLOL TARTRATE 25 MG TAB PO SCH ×3 (08:31→20:17)
[2017-01-18] MEDS: guaiFENesin 600 MG TABLET.ER PO SCH (08:31)
[2017-01-18] MEDS: SYMBICORT 160-4.5 MCG INHALER INHALATION SCH ×2 (09:37→20:56)
[2017-01-18] MEDS: IPRATROPIUM-ALBUTEROL 3 ML NEB INHALATION SCH ×4 (09:37→20:55)
--- NOTE | 2017-01-18 10:01 | P.PN ---
Subjective Principal diagnosis: Pericardial effusion. Metastatic lung cancer, receiving treatment. POD #2 pericardial window Patient's currently sitting up in the chair in no acute distress. Denies complaints of pain. He is alert and orientated 3. Objective - Vital Signs Vital signs: Vital Signs Temp 97.1 F L 01/18/17 08:00 Pulse 105 H 01/18/17 08:00 Resp 16 01/18/17 08:00 BP 139/77 01/18/17 08:00 Pulse Ox 96 01/18/17 08:00 Intake & Output 01/17/17 01/18/17 01/18/17 18:59 06:59 18:59 Intake Total 580 480 Output Total 800 1030 Balance -800 -450 480 Weight 106.9 kg Intake: IV 80 Sodium Chloride 0.9% 1, 80 000 ml @ 20 mls/hr IV . Q24H [facility] Rx#:[id number] Oral 500 480 Output: Drainage 30 Anterior Chest 30 Urine 800 1000 Other: Voiding Method Urinal Urinal # Voids 1 - Constitutional General appearance: Present: cooperative, no acute distress, obese - EENT Eyes: Present: normal appearance ENT: Present: hearing grossly normal - Respiratory Details: Respirations are symmetrical and unlabored. Coarse rhonchi throughout, diminished breath sounds to his bilateral bases. He is currently on room air with oxygen saturations of 95%. His tolerating his incentive spirometry and pulling 1500 mL. Reviewed with the patient important of using his incentive spirometry every hour while awake. - Cardiovascular Details: Subxiphoid chest tube remained intact and to waterseal. 20 mL output in the last 8 hours, 40 mL output in the last 24 hours. Heart rate: 120 (Remote telemetry showing sinus tachycardia.) Heart sounds: normal: S1, S2 (Negative for S3, gallop or murmur.) Abnormal Heart Sounds: Present: rub - Gastrointestinal Gastrointestinal Comment(s): Abdomen is soft, nontender, and nondistended. He has positive bowel sounds 4 quadrants. He is tolerating his diet. General gastrointestinal: Present: normal bowel sounds - Integumentary Integumentary Comment(s): His subxiphoid incision is clean dry and well approximated. There is scant serosanguineous drainage. Dressing is clean dry and intact. - Musculoskeletal Musculoskeletal: Present: gait normal, strength equal bilaterally - Psychiatric Psychiatric: Present: A&O x's 3, appropriate affect, intact judgment & insight - Allied health notes Allied health notes reviewed: nursing - Labs CBC & Chem 7: 01/15/17 12:55 01/15/17 12:55 Labs: Abnormal Lab Results - Last 24 Hours (Table) 01/15/17 01/17/17 01/17/17 Range/Units 12:55 12:04 17:06 POC Glucose (mg/dL) 141 H 183 H (75-99) mg/dL TSH 0.352 L (0.465-4.680) mIU/L 01/17/17 01/18/17 Range/Units 20:41 05:43 POC Glucose (mg/dL) 161 H 138 H (75-99) mg/dL TSH (0.465-4.680) mIU/L Microbiology - Last 24 Hours (Table) 01/16/17 15:09 Gram Stain - Preliminary Pericardial Fluid Body Fluid Culture - Preliminary 01/16/17 15:09 Gram Stain - Preliminary Pericardial Fluid Tissue Culture - Preliminary - Imaging and Cardiology Chest x-ray: report reviewed, image reviewed Assessment and Plan (1) Lung cancer Status: Acute (2) Pericardial effusion Status: Acute (3) Adenocarcinoma, lung Status: Chronic Plan: 1. We will discontinue his subxiphoid chest tube this a.m. And repeat chest x- ray tomorrow a.m. 2. Medical management per primary/oncology services. 3. Encourage incentive spirometry every hour while awake.. 4. More recommendations as patient progresses. Time with Patient: Greater than 30
--- NOTE | 2017-01-18 11:11 | P.PN ---
Subjective Progress note dated 01/17/2017 The patient went for a pericardial window yesterday. It was done by Dr. Broussard. The patient feels better today. Doing relatively well. Relatively large pericardial effusion. The patient still coughing. Producing phlegm. Lots of chest congestion. Is feeling better though. Progress note dated 01/18/2017 This is a 61-year-old gentleman with a history of assist advanced non-small cell lung cancer. The patient has had brain metastases in the liver lesion. More recently he came in with shortness of breath. Shortness of breath was likely multifactorial but he was found to have a large pericardial effusion. He underwent a pericardial window by Dr. Broussard. The patient's breathing is a bit better. We'll switch his updrafts when necessary. He is hoping to be able to be discharge relatively soon. The cytology on the pericardial fluid is currently pending. He is much improved though. Objective - Vital Signs Vital signs: Vital Signs Temp 97.1 F L 01/18/17 08:00 Pulse 104 H 01/18/17 09:52 Resp 16 01/18/17 08:00 BP 139/77 01/18/17 08:00 Pulse Ox 96 01/18/17 08:00 Intake & Output 01/17/17 01/18/17 01/18/17 18:59 06:59 18:59 Intake Total 580 480 Output Total 800 1030 Balance -800 -450 480 Weight 106.9 kg Intake: IV 80 Sodium Chloride 0.9% 1, 80 000 ml @ 20 mls/hr IV . Q24H TYLER Rx#:[id number] Oral 500 480 Output: Drainage 30 Anterior Chest 30 Urine 800 1000 Other: Voiding Method Urinal Urinal # Voids 1 - Exam No acute distress, oriented 3. HEENT examination is grossly unremarkable. Mucous membranes are moist. No oral lesions. Neck supple. Full range of motion. No adenopathy. Neck veins are flat. Cardiovascular examination reveals regular rhythm with rhythm rate. Heart sounds are still distant. S1-S2 normal. No murmur. No S3 or S4. Lungs reveal some coarse expiratory respiratory rhonchi. Breath sounds are diminished. He coughs quite a bit with deep breathing. Abdomen soft bowel sounds are heard. Extremities are intact no cyanosis clubbing or edema. Skin is without rash or lesion. Neurologic examination nonfocal. - Labs CBC & Chem 7: 07/12/17 12:55 01/15/17 12:55 Labs: Abnormal Lab Results - Last 24 Hours (Table) 01/15/17 01/17/17 01/17/17 Range/Units 12:55 12:04 17:06 POC Glucose (mg/dL) 141 H 183 H (75-99) mg/dL TSH 0.352 L (0.465-4.680) mIU/L 01/17/17 01/18/17 Range/Units 20:41 05:43 POC Glucose (mg/dL) 161 H 138 H (75-99) mg/dL TSH (0.465-4.680) mIU/L Microbiology - Last 24 Hours (Table) 01/16/17 15:09 Gram Stain - Preliminary Pericardial Fluid Body Fluid Culture - Preliminary 01/16/17 15:09 Gram Stain - Preliminary Pericardial Fluid Tissue Culture - Preliminary Assessment and Plan (1) Lung cancer Status: Acute (2) Pericardial effusion Status: Acute (3) Pleural effusion Status: Acute (4) Adenocarcinoma, lung Status: Chronic Plan: Plan dated 01/16/2017 The patient will be placed on updrafts 4 times a day and when necessary. We'll also recommend Symbicort 160/4.52 puffs twice a day. We will do stat echocardiogram. The patient will be seen by cardiology. He may need to be seen by cardiothoracic surgery. We'll also make sure he is on some steroids. Additional recommendations suggestions are forthcoming. Prognosis is poor. Most recent computed tomography scan showed advanced lung cancer with worsening of his bulky adenopathy and other findings in his chest. He also has a new lesion in his liver. Plan dated 01/17/2017 The patient had a pericardial window performed by Dr. Broussard yesterday. He clinically feels a bit better. The patient's medications were reviewed yesterday. An echocardiogram was done stat yesterday. Read by one of the cardiologists. Anyway the patient does look better and feel better. We'll continue to follow. His overall prognosis is very poor given the fact that he has advanced non-small cell lung cancer with a brain met and a new liver lesion. He's undergone chemotherapy for rounds brain irradiation for the brain lesion and was placed on immunotherapy with OPDIVO. Plan dated 01/18/2017. The patient had a pericardial window performed [address] Broussard. Clinically he is doing better. We will switch his updrafts to when necessary. The patient is feeling much improved and hopes to go home relatively soon. He has a history of stage IV advanced non-small cell lung cancer. This patient is status post chemotherapy and radiation to the brain lesion. He is currently on immunotherapy with Opdivo. Time with Patient: Less than 30
[2017-01-18 11:33] LABS: Basophils % (A) 0 %; CH 25.6; Eosinophils % (A) 0 %; HCT 41.2 % (39.0-53.0); HDW 2.38; HGB 12.9 gm/dL (13.0-17.5); Hypochromasia Slight; Luc # (Auto) 0.21; Luc % (Auto) 1; Lymphocytes # (A) 0.5 k/uL (1.0-4.8); Lymphocytes % (A) 2 %; MCH 25.9 pg (25.0-35.0); MCHC 31.4 g/dL (31.0-37.0); MCV 82.7 fL (80.0-100.0); Mean Platelet Volume 6.8; Monocytes # (A) 0.7 k/uL (0-1.0); Monocytes % (A) 3 %; Neutrophils # (A) 20.8 k/uL (1.3-7.7); Neutrophils % (A) 94 %; RBC 4.98 m/uL (4.30-5.90); RDW 14.7 % (11.5-15.5); WBC 22.2 k/uL (3.8-10.6); WBC (Perox) 22.01
[2017-01-18 11:46] LABS: Glucose,Whole Blood 114 mg/dL (75-99)
[2017-01-18 11:48] LABS: Anion Gap 11 mmol/L; Blood Urea Nitrogen 30 mg/dL (9-20); Calcium 10.2 mg/dL (8.4-10.2); Carbon Dioxide 28 mmol/L (22-30); Chloride 98 mmol/L (98-107); Glucose 117 mg/dL (74-99); Non-African American GFR(MDRD) >60 (>60 ml/min/1.73 sqM); Sodium 137 mmol/L (137-145)
--- NOTE | 2017-01-18 13:26 | PN ---
Mr. Baez is in sinus rhythm, comfortable, breathing easier. His pericardial drainage tube is out. His lungs are clear, S1, S2 heard normal. Plan is to perform a repeat echo on Friday. Continue current medications and move him to the medical floor. He is feeling remarkably better. VIOLETTE
--- NOTE | 2017-01-18 16:26 | P.PN ---
Progress Note - Text DATE OF SERVICE: 01/17/2017 PRESENTING COMPLAINT: Short of breath/cough INTERVAL HISTORY: 60-year-old patient with stage IV lung cancer status post radiation/chemotherapy , presents with shortness of breath, found to have a pericardial effusion likely secondary to lung cancer. 01/16/2017: Sitting up playing cards with his , appears comfortable, shortness of breath noted with minimal exertion, short distances. Tolerating a diet, states appetite is fair, eats about 50% of his meals, ambulatory to and from the bathroom. Seen by Dr. Peng this morning, 2-D echocardiogram done as well. 01/17/2017: He was taken to have a pericardial window performed on 01/16/2017, for which they removed removed 600 mL of serous drainage. Chest tube remains in place, positive for flu. Patient has long-standing sinus tachycardia for which cardiology is going to investigate further for possible thyroid dysfunction. breathing a bit better, cough and producing phlegm tolerating his diet, ambulatory in the room, moving his bowels. REVIEW OF SYSTEMS: Done for constitutional ,cardiovascular, GI, pulmonary with relevant findings as above. CURRENT MEDICATIONS DuoNeb, Solu-Medrol, Symbicort, Lovenox, Benadryl, Mucinex, Claritin, melatonin. PHYSICAL EXAM VITAL SIGNS: Temperature 97.6, heart rate 118, respiratory rate 16, blood pressure 105/77, oxygen saturation 96% on room air. GENERAL APPEARANCE:. Sitting up in a chair, not in distress. EYES: Pupils equal. Conjunctiva normal. NECK: JVD not raised. Mass not palpable. RESPIRATORY: Respiratory effort normal. Lungs diminished with coarse breath sounds bilaterally and expiratory wheezing, continues to cough up whitish sputum. CARDIOVASCULAR: First and second sounds normal. No edema. ABDOMEN: Soft. Liver and spleen not palpable. No tenderness. No mass palpable. PSYCHIATRY: Alert and oriented x3. Mood and affect normal. INVESTIGATIONS: LABS: White blood cell count 22.2, hemoglobin 12.9, Accu-Cheks noted. ASSESSMENT: -Stage IV lung cancer/adenocarcinoma with pericardial effusion status post pericardial window -Large pericardial effusion likely an extension of lung cancer, improving -Large pleural effusion, could be from malignancy or could be result of immunotherapy, improving -Acute COPD in an X- smoker -Obesity BMI 33.6 -Kidney stones asymptomatic -Primary osteoarthritis in multiple joints bilateral -Persistent Sinus tachycardia, unclear etiology PLAN: Repeat 2-D echo with Doppler on Friday, beta kyree added for tachycardia. We' ll follow along with oncology recommendations . Plan of care discussed with the patient and at the bedside questions answered we'll continue to follow closely. FLAP PRESSER statement: Patient was seen and examined by nurse practitioner Precious Currie and all elements of the case discussed with attending Dr. Gibbs
[2017-01-18 18:03] LABS: Glucose,Whole Blood 148 mg/dL (75-99)
[2017-01-18] MEDS: NAPROXEN 250 MG TAB PO PRN (18:23)
[2017-01-18 20:10] LABS: Glucose,Whole Blood 136 mg/dL (75-99)
[2017-01-18] MEDS: SODIUM CHLORIDE 0.9% 1,000 ML IV SCH (20:10)
[2017-01-18] MEDS: MELATONIN 5 MG TABLET PO SCH (20:17)
[2017-01-18] MEDS ORDERED: METOCLOPRAMIDE 5 MG/ML 2 ML VIAL IVP PRN (21:46)
[2017-01-19] MEDS ORDERED: METOCLOPRAMIDE 5 MG/ML 2 ML VIAL IVP SCH
[2017-01-19] MEDS: methylPREDNISolone SOD SUCCI 125 MG/2 ML VIAL IV SCH (06:09)
[2017-01-19 07:32] LABS: Glucose,Whole Blood 125 mg/dL (75-99)
[2017-01-19] MEDS: INSULIN LISPRO (humaLOG) 300 UNIT/3 ML VIAL SQ SCH ×4 (07:36→21:11)
--- NOTE | 2017-01-19 07:54 | PN ---
No dictation. ( ) MTDD
--- NOTE | 2017-01-19 07:58 | PN ---
DATE OF SERVICE: 01/18/17 ATTENDING NOTE: This patient was seen and examined by me. Reviewed the note of my nurse practitioner, Ms. Currie, discussed, additional findings below. INTERVAL HISTORY: This is a patient with Stage IV lung cancer, adenocarcinoma with pericardial effusion. Had a pericardial window done. 600 mL of fluid was removed. The patient is breathing is better, still coughing up some sputum. Tolerating a diet. Sitting up in a chair. On examination, afebrile, pulse 110. Respirations 18. Blood pressure 105/83. Pulse ox 97% on room air. Lungs decreased breath sounds, some crackles. Cardiovascular: First and second sounds normal. Psych: AO times three. The patient is comfortable. Investigations: White count 22.2. Potassium 5.0. ASSESSMENT: Stage IV lung cancer adenocarcinoma with pericardial effusion and pericardial window. The patient's drain has been removed. PLAN: Care was discussed with the patient. Continue current medication and treatment plan. Overall prognosis guarded. MTDD
[2017-01-19 08:08] LABS: Basophils % (A) 0 %; CH 25.5; Eosinophils % (A) 0 %; HCT 41.1 % (39.0-53.0); HDW 2.41; HGB 13.1 gm/dL (13.0-17.5); Hypochromasia Slight; Luc % (Auto) 1; Lymphocytes # (A) 0.5 k/uL (1.0-4.8); Lymphocytes % (A) 3 %; MCH 26.2 pg (25.0-35.0); MCHC 31.8 g/dL (31.0-37.0); MCV 82.2 fL (80.0-100.0); Mean Platelet Volume 6.7; Monocytes # (A) 0.6 k/uL (0-1.0); Monocytes % (A) 3 %; Neutrophils % (A) 94 %; RDW 14.7 % (11.5-15.5); WBC 19.2 k/uL (3.8-10.6); WBC (Perox) 18.89
[2017-01-19 08:25] LABS: Anion Gap 9 mmol/L; Blood Urea Nitrogen 31 mg/dL (9-20); Calcium 9.9 mg/dL (8.4-10.2); Carbon Dioxide 29 mmol/L (22-30); Chloride 99 mmol/L (98-107); Glucose 122 mg/dL (74-99); Non-African American GFR(MDRD) >60 (>60 ml/min/1.73 sqM); Potassium 5.3 mmol/L (3.5-5.1); Sodium 137 mmol/L (137-145)
[2017-01-19] MEDS: ENOXAPARIN 40 MG/0.4 ML SYRINGE SQ SCH (08:28)
[2017-01-19] MEDS: METOPROLOL TARTRATE 25 MG TAB PO SCH ×3 (08:29→21:11)
[2017-01-19] MEDS: guaiFENesin 600 MG TABLET.ER PO SCH (08:29)
[2017-01-19] MEDS: LORATADINE 10 MG TAB PO SCH (08:29)
[2017-01-19] MEDS: SYMBICORT 160-4.5 MCG INHALER INHALATION SCH ×2 (08:51→20:43)
[2017-01-19] MEDS: IPRATROPIUM-ALBUTEROL 3 ML NEB INHALATION SCH ×4 (08:51→20:43)
--- NOTE | 2017-01-19 08:55 | XR ---
EXAMINATION TYPE: XR chest 2V DATE OF EXAM: 01/19/2017 COMPARISON: Chest x-ray from yesterday. HISTORY: History of lung cancer status post pericardial window TECHNIQUE: Frontal and lateral views of the chest are obtained. FINDINGS: There is stable left subclavian Mediport catheter. Cardiac silhouette size is stable and u pper limits of normal. There is interval removal of pericardial drainage catheter. There is persisten t elevated right hemidiaphragm and suspected small right pleural effusion. Right lung is now clear. T here is background chronic emphysematous change. Left lung remains clear. Right-sided volume loss wit h tracheal shift is redemonstrated. Increased density right paratracheal region is noted correlates w ith masslike consolidation or pleural thickening. Osseous structures are intact. Multiple small nodul es throughout left lung are seen better on recent CT . IMPRESSION: Interval removal of pericardial drainage catheter. Background chronic emphysematous luna ge with small right pleural effusion layering in right lung fissure and elevated right hemidiaphragm present. No new focal infiltrate is present.
--- NOTE | 2017-01-19 10:18 | P.PN ---
Subjective Principal diagnosis: Pericardial effusion. Metastatic lung cancer, receiving treatment. POD #3 pericardial window Patient's currently sitting up to the side of his bed. He denies complaints of pain. He is alert and orientated 3. Objective - Vital Signs Vital signs: Vital Signs Temp 97.9 F 01/19/17 07:00 Pulse 100 01/19/17 09:06 Resp 18 01/19/17 08:51 BP 149/93 01/19/17 07:00 Pulse Ox 95 01/19/17 07:00 Intake & Output 01/18/17 01/19/17 01/19/17 18:59 06:59 18:59 Intake Total 960 20 Output Total 20 Balance 960 0 Intake: IV 20 saline flush 20 Oral 960 Output: Emesis 20 Other: Voiding Method Urinal Toilet Toilet - Constitutional General appearance: Present: cooperative, no acute distress, obese - EENT Eyes: Present: PERRLA, normal appearance ENT: Present: hearing grossly normal - Respiratory Details: Respirations are symmetrical and unlabored. Coarse rhonchi throughout, negative for productive cough. He is tolerating 2000 mL on his incentive spirometry. He was encouraged to use his incentive spirometry every hour while awake. - Cardiovascular Details: Regular rhythm and rate, S1 and S2, negative for S3, gallop or murmur. Remote telemetry showing sinus tachycardia heart rate 108. Knee-high RHODA hose and sequential compression devices in place to his bilateral lower extremity Hector. - Gastrointestinal Gastrointestinal Comment(s): Abdomen is soft, nontender, and nondistended. Positive bowel sounds in all 4 abdominal quadrants. He is tolerating his diet. - Genitourinary Genitourinary Comment(s): Adequate, clear yellow urine. - Integumentary Integumentary Comment(s): The subxiphoid incision is clean dry and well approximated. Dermabond intact. There is scant serosanguineous drainage from his old chest tube insertion site. - Neurologic Neurologic: Present: CNII-XII intact - Musculoskeletal Musculoskeletal: Present: gait normal, generalized weakness, strength equal bilaterally - Psychiatric Psychiatric: Present: A&O x's 3, appropriate affect, intact judgment & insight - Allied health notes Allied health notes reviewed: nursing - Labs CBC & Chem 7: 01/19/17 07:41 01/19/17 07:41 Labs: Abnormal Lab Results - Last 24 Hours (Table) 01/18/17 01/18/17 01/18/17 Range/Units 11:19 11:19 11:39 WBC 22.2 H (3.8-10.6) k/uL Hgb 12.9 L (13.0-17.5) gm/dL Neutrophils # 20.8 H (1.3-7.7) k/uL Lymphocytes # 0.5 L (1.0-4.8) k/uL Potassium (3.5-5.1) mmol/L BUN 30 H (9-20) mg/dL Glucose 117 H (74-99) mg/dL POC Glucose (mg/dL) 114 H (75-99) mg/dL 01/18/17 01/18/17 01/19/17 Range/Units 18:00 20:06 07:31 WBC (3.8-10.6) k/uL Hgb (13.0-17.5) gm/dL Neutrophils # (1.3-7.7) k/uL Lymphocytes # (1.0-4.8) k/uL Potassium (3.5-5.1) mmol/L BUN (9-20) mg/dL Glucose (74-99) mg/dL POC Glucose (mg/dL) 148 H 136 H 125 H (75-99) mg/dL 01/19/17 01/19/17 Range/Units 07:41 07:41 WBC 19.2 H (3.8-10.6) k/uL Hgb (13.0-17.5) gm/dL Neutrophils # 18.0 H (1.3-7.7) k/uL Lymphocytes # 0.5 L (1.0-4.8) k/uL Potassium 5.3 H (3.5-5.1) mmol/L BUN 31 H (9-20) mg/dL Glucose 122 H (74-99) mg/dL POC Glucose (mg/dL) (75-99) mg/dL Microbiology - Last 24 Hours (Table) 01/16/17 15:09 Anaerobic Culture - Preliminary Tissue - Other 01/16/17 15:09 Anaerobic Culture - Preliminary Pericardial Fluid 01/16/17 15:09 Gram Stain - Preliminary Pericardial Fluid Body Fluid Culture - Preliminary 01/16/17 15:09 Gram Stain - Preliminary Pericardial Fluid Tissue Culture - Preliminary - Imaging and Cardiology Chest x-ray: report reviewed, image reviewed Assessment and Plan (1) Lung cancer Status: Acute (2) Pericardial effusion Status: Acute (3) Adenocarcinoma, lung Status: Chronic Plan: 1. His subxiphoid chest tube was removed yesterday a.m. 2. Medical management per primary/oncology services. 3. Encourage incentive spirometry every hour while awake. 4. Cardiothoracic surgery will follow on a as needed basis. Time with Patient: Greater than 30
[2017-01-19 11:42] LABS: Glucose,Whole Blood 114 mg/dL (75-99)
[2017-01-19] MEDS ORDERED: SODIUM POLYSTYRENE SULFONATE 15 GM/60 ML BOTTLE PO STA (12:13)
--- NOTE | 2017-01-19 14:16 | PN ---
This is a 61-year male well known to my service. Admitted with a diagnostic of non-small cell lung cancer in the recent past. He has a lesion to the liver which is likely metastatic as well as brain METS. He has undergone chemotherapy for rounds and also underwent brain radiation. More recently he has been on ( ). He recently underwent a pericardial window by Dr. Broussard for pericardial effusion. The patient seems to be doing a bit better. Less short of breath. The patient does feel better. No cough. No wheezing. No phlegm. Current vital signs include a temperature is 97.9, heart rate is 100. Respiratory rate is 16. Blood pressure 149/93. Mean 111. Room air saturation 95%. Appears in no acute distress. HEENT: Grossly unremarkable. Mucous membranes are moist. Neck supple. Full range of motion. No adenopathy. No thyromegaly. Neck veins are flat. Cardiovascular examination reveals regular rate and rhythm. Heart rate 90. Heart sounds are somewhat obscured by adventitious lung sounds. Lungs reveal some coarse rhonchi. Breath sounds are diminished. Slight prolongation. Abdomen soft. Bowel sounds heard. Skin without rash. Extremities intact. Extremities revealed no evidence of edema, cyanosis or clubbing. Labs are reviewed. White count 19.2, hemoglobin 13.1, hematocrit 41.1, platelet count 405,000. Sodium 137, and potassium 5.3. Chloride 99, CO2 29. BUN and creatinine 31 and 0.96. Microbiology all negative. Chest x-ray reveals the removal of the recently inserted pericardial catheter. Medications are reviewed. ASSESSMENT: 1. Advanced non-small cell lung cancer. 2. Pericardial effusion status post pericardial window. 3. Adenocarcinoma of the lung status post four rounds of chemotherapy. 4. Brain metastasis. 5. Likely liver metastasis. 6. Likely liver metastasis. PLAN: We will continue to follow. Hopefully discharge soon. The patient seems to be improved. pericardial catheter was removed. No additional recommendations are made. Medications are reviewed. MTDD
[2017-01-19 16:51] LABS: Glucose,Whole Blood 127 mg/dL (75-99)
[2017-01-19] MEDS: SODIUM CHLORIDE 0.9% 1,000 ML IV SCH (17:03)
[2017-01-19 20:52] LABS: Glucose,Whole Blood 140 mg/dL (75-99)
[2017-01-19] MEDS: MELATONIN 5 MG TABLET PO SCH (21:11)
[2017-01-20 01:50] VITALS: RESP 16
[2017-01-20 07:13] LABS: Glucose,Whole Blood 81 mg/dL (75-99)
[2017-01-20 07:53] VITALS: BP 138/89; TEMP 97.5
--- NOTE | 2017-01-20 08:02 | PN ---
DATE OF SERVICE: 01/19/2017 PRESENTING COMPLAINT: Slightly short of breath. INTERVAL HISTORY: This ( ) gentleman who has got stage IV lung cancer adenocarcinoma who has recurrence of disease with metastasis to the ribs and mediastinal lymphadenopathy, presented with large pericardial effusion. There was no tamponade. Pericardial window was done and 600 mL was drained. Patient also had COPD exacerbation. Patient at the baseline has sinus tachycardia. Cardiology wants to do a repeat 2-D echocardiogram tomorrow. Otherwise, patient is tolerating his diet, rather cheerful. Patient has at a baseline rattling in his chest. Review of systems done for constitutional, cardiovascular, GI, pulmonary; relevant findings as above. Current medications are reviewed that include breathing treatments, oral prednisone. On examination, temperature 97.9, pulse 106, respirations 18, blood pressure is 149/73, pulse ox 95% on room air. GENERAL APPEARANCE: Sitting up, comfortable. EYES: Pupils equal. Conjunctivae normal. NECK: JVD unable to assess. Mass not palpable. RESPIRATORY: Effort increased. LUNGS: Some crackles. Mild wheezing. CARDIOVASCULAR: First and second sounds normal. No edema. ABDOMEN: Soft, nontender. Liver and spleen not palpable. PSYCHIATRY: Alert and oriented x3. Mood and affect normal. INVESTIGATIONS: White count 19.2, hemoglobin 13.1. Potassium 5.3. BUN 31, creatinine 0.96. Accu-Cheks are noted. ASSESSMENT: 1. Stage IV lung cancer, having had previous right upper lobe removed in 2013 then received chemotherapy, now recurrence noted. It is adenocarcinoma type including metastasis to the rib and mediastinal lymphadenopathy. 2. Large pericardial effusion with no tamponade. Did have a pericardial window done, 600 mL fluid was removed. 3. Immunotherapy ( ) patient as an outpatient. 4. Acute chronic obstructive pulmonary disease exacerbation in a smoker. 5. Obesity. Body mass index 33.6. 6. Kidney stones, asymptomatic. 7. Primary osteoarthritis multiple joints bilateral. 8. Sinus tachycardia. PLAN: Care was discussed with the patient. at the bedside. Repeat 2-D echocardiogram. I think patient should be able to be discharged home after that. For the hyperkalemia, will given one dose of Kayexalate. MTDD
[2017-01-20] MEDS: IPRATROPIUM-ALBUTEROL 3 ML NEB INHALATION SCH ×2 (08:04→12:04)
[2017-01-20] MEDS: SYMBICORT 160-4.5 MCG INHALER INHALATION SCH (08:04)
[2017-01-20] MEDS: INSULIN LISPRO (humaLOG) 300 UNIT/3 ML VIAL SQ SCH ×2 (08:42→12:37)
[2017-01-20] MEDS: LORATADINE 10 MG TAB PO SCH (08:43)
[2017-01-20] MEDS: METOPROLOL TARTRATE 25 MG TAB PO SCH (08:43)
[2017-01-20] MEDS: ENOXAPARIN 40 MG/0.4 ML SYRINGE SQ SCH (08:43)
[2017-01-20] MEDS: guaiFENesin 600 MG TABLET.ER PO SCH (08:43)
[2017-01-20] MEDS ORDERED: predniSONE 20 MG TAB PO SCH (09:00)
[2017-01-20 11:28] LABS: Glucose,Whole Blood 107 mg/dL (75-99)
--- NOTE | 2017-01-20 12:01 | P.DS ---
Providers Date of admission: 01/15/17 15:49 Attending physician: Ramakrishna Gibbs Consults: 01/15/17 15:49 Consult Physician Routine Consulting Provider: Darrell Gomez Consult Reason/Comments: Lung cancer, pleural effusion, pericardial effusion Do you want consulting provider notified?: Yes 01/15/17 22:17 Consult Physician Routine Consulting Provider: Chetna Bruner Consult Reason/Comments: Pericardial effusion large Do you want consulting provider notified?: Yes 01/16/17 09:18 Consult Physician Routine Consulting Provider: Kermit De La Vega Consult Reason/Comments: known to you, lung cancer dx, short of breath Do you want consulting provider notified?: Already Contacted 01/16/17 12:17 Consult Physician Urgent Consulting Provider: Musa Broussard Consult Reason/Comments: pericardial effusion Do you want consulting provider notified?: Already Contacted Primary care physician: [facility] Course: 60-year-old patient with stage IV lung cancer status post radiation/chemotherapy , presents with shortness of breath, found to have a pericardial effusion likely secondary to lung cancer. 01/16/2017: Sitting up playing cards with his , appears comfortable, shortness of breath noted with minimal exertion, short distances. Tolerating a diet, states appetite is fair, eats about 50% of his meals, ambulatory to and from the bathroom. Seen by Dr. Peng this morning, 2-D echocardiogram done as well. 01/17/2017: He was taken to have a pericardial window performed on 01/16/2017, for which they removed removed 600 mL of serous drainage. Chest tube remains in place, positive for flu. Patient has long-standing sinus tachycardia for which cardiology is going to investigate further for possible thyroid dysfunction. breathing a bit better, cough and producing phlegm tolerating his diet, ambulatory in the room, moving his bowels. 01/20/2017 Patient is clinically doing well is for discharge from pulmonology and the cardiovascular thoracic perspective and patient was discharged today to home. Patient is clinical doing well patient was seen and examined on the day of discharge. 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 -Persistent Sinus tachycardia, unclear etiology Patient Condition at Discharge: Stable Plan - Discharge Summary New Discharge Prescriptions: New predniSONE 10 mg PO DAILY #15 tab Metoprolol Tartrate [Lopressor] 50 mg PO BID #60 tab No Action Docusate Sodium [Dulcolax Stool Softener] 100 mg PO TID Tiotropium [place] [Spiriva Respimat] 4 gm IH RT-DAILY PRN PRN Reason: Bronchospasm diphenhydrAMINE HCL [Benadryl] 50 mg PO HS PRN PRN Reason: Allergy Symptoms Naproxen Sodium/Pseudoephedrin [Aleve-D Sinus and Cold Caplet] 1 tab PO BID Fexofenadine HCl [Skye Allergy] 180 mg PO DAILY guaiFENesin [Mucinex] 600 mg PO DAILY Fluticasone/Salmeterol [Advair 500-50 Diskus] 1 inhalation PO RT-BID Levalbuterol Nebulized [Xopenex Nebulized] 1.25 mg INHALATION RT-QID PRN PRN Reason: Shortness Of Breath Opdivo Unknown Dose 1 dose IV Q14D Discharge Medication List Docusate Sodium [Dulcolax Stool Softener] 100 mg PO TID 02/14/14 [History] Tiotropium [place] [Spiriva Respimat] 4 gm IH RT-DAILY PRN 06/26/16 [History] Fexofenadine HCl [Skye Allergy] 180 mg PO DAILY 12/03/16 [History] Fluticasone/Salmeterol [Advair 500-50 Diskus] 1 inhalation PO RT-BID 12/03/16 [ History] Levalbuterol Nebulized [Xopenex Nebulized] 1.25 mg INHALATION RT-QID PRN [History] Naproxen Sodium/Pseudoephedrin [Aleve-D Sinus and Cold [place]] 1 tab PO BID [History] Opdivo Unknown Dose 1 dose IV Q14D 12/03/16 [History] diphenhydrAMINE HCL [Benadryl] 50 mg PO HS PRN 12/03/16 [History] guaiFENesin [Mucinex] 600 mg PO DAILY 12/03/16 [History] Metoprolol Tartrate [Lopressor] 50 mg PO BID #60 tab 01/20/17 [Rx] predniSONE 10 mg PO DAILY #15 tab 01/20/17 [Rx] Follow up Appointment(s)/Referral(s): Adama Castillo DO [Primary Care Provider] - 3 Days Patient Instructions/Handouts: Pleural Effusion (DC), Pericardial Effusion (DC) Discharge Disposition: HOME SELF-CARE
[2017-01-20 12:04] VITALS: PULSE 92
--- NOTE | 2017-01-20 12:38 | PN ---
Mr. Baez is a 61-year-old male with a history of lung CA with metastasis who presented with large pericardial effusion, underwent a pericardial window placement. The tube is out. He is doing well. His breathing is stable. He is denying any chest pain. No dizziness or palpitation. He is ambulating. He feels that his breathing is back to his baseline. He continues to be at this time on insulin, ipratropium, loratadine, melatonin, Reglan, metoprolol tartrate 25 mg 3 times a day. PHYSICAL EXAMINATION: Blood pressure 138/80 with a heart rate in the 90s to 100s. Lungs with severe rhonchi. HEART: Regular rate and rhythm, S1, S2, no S3, no rub. ABDOMEN: Soft, nontender. EXTREMITIES: No edema. Lab data revealed potassium 4.0. IMPRESSION: 1. Large pericardial effusion with no evidence of tamponade, status post pericardial window. 2. Lung CA with metastasis. RECOMMENDATION: From the cardiac standpoint, he is stable. The repeat echocardiogram revealed no significant effusion. He will be discharged home and followed up by his oncologist. Depending on his progress, recommendation will be made. VIOLETTE
--- NOTE | 2017-01-20 16:29 | P.PN ---
Subjective 61-year-old male patient with stage IV non-small cell lung cancer status post chemoradiation therapy presented to hospital because of worsening shortness of breath and the patient was found to have a large pericardial effusion secondary to malignancy. The patient was taken for a pericardial window that was performed on 01/16/2017. A total of 600 mL of serous drainage was obtained. The chest tube was kept in place for another few days and then subsequently taken off. The patient felt better. The surgical wound site over the anterior chest area is dry clean and intact and there is no active drainage from the area. No significant cough or sputum production. He is tolerating his diet. No nausea. No vomiting. No fever or chills. The plan is to discharge this patient home today post his pericardial window Objective - Vital Signs Vital signs: Vital Signs Temp 97.5 F L 01/20/17 07:00 Pulse 92 01/20/17 12:17 Resp 16 01/20/17 07:00 BP 138/89 01/20/17 07:00 Pulse Ox 96 01/20/17 08:04 Intake & Output 01/19/17 01/20/17 01/20/17 18:59 06:59 18:59 Intake Total 10 860 Balance 10 860 Intake: IV 10 20 saline flush 10 20 Oral 840 Other: Voiding Method Toilet Toilet # Voids 2 - Exam The patient appeared well nourished and normally developed. Vital signs as documented. Head exam is unremarkable. No scleral icterus or corneal arcus noted. Neck is without jugular venous distension, thyromegaly, or carotid bruits. Carotid upstrokes are brisk bilaterally. Lungs are diminished breath sounds in the lung bases and the surgical wound site over the anterior chest area dry clean and intact. There is no active drainage from the involved area.. Cardiac exam reveals the PMI to be normally sized and situated. Rhythm is regular. First and second heart sounds normal. No murmurs, rubs or gallops. Abdominal exam reveals normal bowel sounds, no masses, no organomegaly and no aortic enlargement. Extremities are nonedematous and both femoral and pedal pulses are normal. - Labs CBC & Chem 7: 01/19/17 07:41 01/20/17 11:39 Labs: Abnormal Lab Results - Last 24 Hours (Table) 01/19/17 01/19/17 01/20/17 Range/Units 16:49 20:48 11:27 POC Glucose (mg/dL) 127 H 140 H 107 H (75-99) mg/dL Microbiology - Last 24 Hours (Table) 01/16/17 15:09 Gram Stain - Preliminary Pericardial Fluid Body Fluid Culture - Preliminary 01/16/17 15:09 Gram Stain - Preliminary Pericardial Fluid Tissue Culture - Preliminary Assessment and Plan Plan: Assessment 1 stage IV lungcancer/ adenocarcinomawithpericardialeffusionstatuspostpericardialwindow. 2 pleural effusion,stable 3 COPD 4 chronic dyspnea with acute decompensation of the respiratory status due to pericardial effusion 5 obesity with a BMI of 33.6 6 osteoarthritis 7 nephrolithiasis Plan The patient can be discharged home today to be followed up by oncology and to be followed by pulmonary, Dr. Gomez on outpatient basis.
--- NOTE | 2017-01-20 17:14 | P.PN ---
Subjective Principal diagnosis: Difficulty in breathing, tachycardia Patient is seen today in follow-up. He is post pericardial window mediastinal drain has been removed. Patient feels well, his cough is productive but this is not new for him and actually he feels better that he can expectorate, he can ambulate independently, he feels that he is ready to go home. Objective - Vital Signs Vital signs: Vital Signs Temp 97.5 F L 01/20/17 07:00 Pulse 92 01/20/17 12:17 Resp 16 01/20/17 07:00 BP 138/89 01/20/17 07:00 Pulse Ox 96 01/20/17 08:04 Intake & Output 01/19/17 01/20/17 01/20/17 18:59 06:59 18:59 Intake Total 10 860 Balance 10 860 Intake: IV 10 20 saline flush 10 20 Oral 840 Other: Voiding Method Toilet Toilet # Voids 2 - Constitutional General appearance: Present: cooperative, no acute distress, obese - Respiratory Respiratory: bilateral: rhonchi - Cardiovascular Heart sounds: normal: S1, S2 Abnormal Heart Sounds: Absent: systolic murmur, diastolic murmur, rub, S3 Gallop , S4 Gallop, click, other - Peripheral edema leg Peripheral Edema: bilateral: None - Gastrointestinal General gastrointestinal: Present: normal bowel sounds, soft - Neurologic Neurologic: Present: CNII-XII intact - Musculoskeletal Musculoskeletal: Present: strength equal bilaterally - Psychiatric Psychiatric: Present: A&O x's 3, appropriate affect, intact judgment & insight - Labs CBC & Chem 7: 01/19/17 07:41 01/20/17 11:39 Labs: Abnormal Lab Results - Last 24 Hours (Table) 01/19/17 01/20/17 Range/Units 20:48 11:27 POC Glucose (mg/dL) 140 H 107 H (75-99) mg/dL Microbiology - Last 24 Hours (Table) 01/16/17 15:09 Gram Stain - Preliminary Pericardial Fluid Body Fluid Culture - Preliminary 01/16/17 15:09 Gram Stain - Preliminary Pericardial Fluid Tissue Culture - Preliminary Assessment and Plan (1) Adenocarcinoma, lung Narrative/Plan: Pt is currently s/p 4th cycle of nivolumab. Case reviewed with Dr. De La Vega, plan is to continue with nivolumab in outpatient. Pt ok for D/C from Hem/Onc standpoint once cleared by Attending and Consulting Physicians Status: Chronic
== END 2017-01-20 15:39 | disposition home or self-care (01) | DRG 271 ==
LOC: EC 12:05 → 5ONC 15:49 → 6SEL 01-16 15:55 → 5ONC 01-18 15:14
PROVIDERS: ADMIT Hospitalist; ATTEND Hospitalist
PROC: 0W9D00Z Drainage of Pericardial Cavity with Drainage Device, Open Approach (ICD-10-PCS; principal; 2017-01-16 14:12)
DX: I31.3 Pericardial effusion (noninflammatory) (principal); C79.89 Secondary malignant neoplasm of other specified sites; J90 Pleural effusion, not elsewhere classified; C77.1 Secondary and unspecified malignant neoplasm of intrathoracic lymph nodes; C78.7 Secondary malignant neoplasm of liver and intrahepatic bile duct; C79.31 Secondary malignant neoplasm of brain; J44.1 Chronic obstructive pulmonary disease with (acute) exacerbation; C34.11 Malignant neoplasm of upper lobe, right bronchus or lung; C79.51 Secondary malignant neoplasm of bone; E87.5 Hyperkalemia; G43.909 Migraine, unspecified, not intractable, without status migrainosus; M19.91 Primary osteoarthritis, unspecified site; K64.9 Unspecified hemorrhoids; K59.00 Constipation, unspecified; I10 Essential (primary) hypertension; N20.0 Calculus of kidney; E66.9 Obesity, unspecified; Z68.33 Body mass index [BMI] 33.0-33.9, adult; Z92.3 Personal history of irradiation; Z92.21 Personal history of antineoplastic chemotherapy; Z86.010 Personal history of colon polyps; Z87.442 Personal history of urinary calculi; Z92.25 Personal history of immunosuppression therapy; Z90.2 Acquired absence of lung [part of]; Z90.49 Acquired absence of other specified parts of digestive tract; Z87.891 Personal history of nicotine dependence; Z79.51 Long term (current) use of inhaled steroids; Z79.899 Other long term (current) drug therapy
CPT/HCPCS: 36415; 71010; 71020; 71275; 80048; 80053; 82550; 82553; 83735; 83880; 84132; 84439; 84443; 84484; 85025; 85379; 85610; 85730; 87070; 87075; 87205; 88108; 88305; 88341; 88342; 93005; 93306; 93308; 94640; 94760; 96360; 96361; 99291

== ENCOUNTER → 2017-02-08 | Outpatient (CLI) | payer OTHER ==
--- NOTE | 2017-02-08 14:48 | PE ---
EXAMINATION TYPE: PET CT fusion skull to thigh DATE OF EXAM: 02/08/2017 COMPARISON: Recent CTA chest January 15, 2017 HISTORY: Lung cancer progress study , originally diagnosed 2014 right lung and completed chemothera py June 2016 with recurrence into hEad completed radiation treatment December 2016. TECHNIQUE: Following the intravenous administration of 11.73 mCi of F-18 FDG, whole body images are performed from the skull base to the midthigh. Images are reviewed on the computer in the coronal, a xial, and sagittal planes. Reconstructed rotating images are created on independent workstation and reviewed on the computer. A localization and attenuation correction CT is performed in conjunction with the PET scan. SCAN: Subsequent Scan FINDINGS: SKULL BASE AND NECK: No suspicious hypermetabolic uptake is seen in the neck. CHEST, MEDIASTINUM, AND HILAR REGION: There is right hilar irregular soft tissue mass with hypermetab olic uptake extending up to right lung apex where there are surgical sutures and clips present. There is mass effect with narrowing of the right mainstem bronchus and marked narrowing of the right upper lobe bronchus. There is prominent narrowing of the bronchus intermedius and right middle lobe bronch us abnormal hypermetabolic uptake is present. Max SUV is 11.59 right hilar level. Persistent or recur rent tumor is suspected. There is some right-sided volume loss with mediastinal shift. There are scattered nodules identified bilaterally. One of the largest is in the right midlung anteri angelina measuring 10 x 8 mm on axial image 96. One of the largest on the left measures 11 x 9 mm on axia l image 99. Some show suspicious hypermetabolic uptake. For reference right midlung lateral subcentim eter nodule has max SUV of 5.4. There are abnormal anterior superior mediastinal lymph nodes, for reference a 12 x 9 mm lymph node on axial image 68 has max SUV of 5.22. There are small to moderate-sized right-sided pleural effusion or fluid collection which does not com pletely layer dependently. No suspicious hypermetabolic uptake is seen. ABDOMEN AND PELVIS: There is abnormal hypermetabolic lateral segment left hepatic lobe liver hypodens e lesion measuring 2.0 x 1.3 cm on axial image 124 with max SUV of 9.18. Smaller subcentimeter liver lesion is suspected on axial image 129. There is 1.5 x 1.2 cm hypermetabolic right adrenal metastatic lesion with max SUV of 7.82. ON Axial i mage 131. OSSEOUS STRUCTURES: Osseous metastatic disease is suspected, for reference slightly sclerotic hyperme tabolic posterior left iliac lesion has max SUV of 5.69. Additional hypermetabolic osseous lesion me dial left femur is felt present on axial image 245 is noted for reference. A few additional osseous l esions are suspected. OTHER CT: Artifact from dental cavitary fillings is seen. There is redemonstration of left subclavian Mediport catheter. There is three-vessel coronary artery calcification which is noted marker for coronary artery disease . There is small to moderate-sized pericardial effusion which is diminished in prominence from prior st udy. There is marked thinning of the anterior abdominal wall near umbilicus, small hernia defect is not ex cluded. No bowel obstruction is present. Surgical sutures the level of sigmoid colon may be present near axial image 2:15. Prostate gland is upper limits of normal in size with central zone calcifications, correlate for BPH. Facet arthropathy lower lumbar levels. There is multilevel spurring in the thoracolumbar spine. IMPRESSION: Diffuse osseous metastatic disease is seen with involvement of the right lung centered hi lar level extending to the right lung apex along the mediastinum. There are metastatic pulmonary nodu les bilaterally. There is metastatic thoracic adenopathy in the anterior superior mediastinum. There is osseous metastatic disease as well as right adrenal and 2 hepatic metastatic lesions all noted.
== END | disposition home or self-care (01) ==
LOC: RADPETMAIN 09:57
PROVIDERS: ATTEND Internal Medicine Hematology & Oncology
DX: C34.90 Malignant neoplasm of unspecified part of unspecified bronchus or lung (principal); C79.51 Secondary malignant neoplasm of bone; R59.0 Localized enlarged lymph nodes
CPT/HCPCS: 78815; A9552